=== PATIENT | male | born 1955 ===

== ENCOUNTER 2017-02-15 13:12 | Inpatient (IN) | payer SELFPAY ==
[~2017-02-15] VITALS: Ht 170.2 cm; Wt 105.6 kg
[2017-02-15] VITALS (8 sets, daily range): BP systolic 91–131; BP diastolic 51–75; PULSE 70–88; RESP 18–26; TEMP 98.5–98.6; O2SAT 93–97
[2017-02-15] MEDS ORDERED: IODIXANOL 320 MG/ML 10 ML VIAL (for Rad CT) IVCONTRAST ONE (13:13)
[2017-02-15] MEDS ORDERED: SODIUM CHLORIDE 0.9% FLUSH 10 ML FLUSH IVF PRN (13:45)
[2017-02-15 14:13] LABS: AUTOMATED NEUTROPHIL # 7.9 TH/MM3 (1.8-7.7); BASOPHIL # 0.1 TH/MM3 (0-0.2); BASOPHIL % 0.7 % (0.0-2.0); EOSINOPHIL # 0.3 TH/MM3 (0-0.4); EOSINOPHIL % 2.1 % (0.0-4.0); HEMATOCRIT 41.4 % (39.0-51.0); HEMO FLAGS DIFF FINAL; LYMPH % 24.8 % (9.0-44.0); MEAN CELL VOLUME 90.1 FL (80.0-100.0); MEAN CORPUSCULAR HEMOGLOBIN 30.2 PG (27.0-34.0); MEAN CORPUSCULAR HGB CONC 33.6 % (32.0-36.0); NEUT % 66.4 % (16.0-70.0); PLATELET COUNT 107 TH/MM3 (150-450); RED CELL DISTRIBUTION WIDTH 13.6 % (11.6-17.2); WHITE BLOOD COUNT 11.9 TH/MM3 (4.0-11.0)
[2017-02-15] MEDS ORDERED: CHLO25TA2 PO (14:15)
[2017-02-15] MEDS ORDERED: ATEN1TAB74 PO (14:15)
[2017-02-15] MEDS ORDERED: GABA100C4 PO (14:15)
[2017-02-15] MEDS ORDERED: WARF-23 PO (14:15)
[2017-02-15] MEDS ORDERED: LISI-515 PO (14:15)
[2017-02-15] MEDS ORDERED: INSU1.2I SQ (14:15)
[2017-02-15] MEDS ORDERED: METF500T PO (14:15)
[2017-02-15 14:23] LABS: APTT (PATIENT) 26.1 SEC (24.3-30.1); INTERNATIONAL NORMALIZED RATIO 1.1 RATIO; PROTHROMBIN TIME - PATIENT 11.9 SEC (9.8-11.6)
[2017-02-15 14:34] LABS: ALT (GPT) 22 U/L (12-78); ANION GAP 11 MEQ/L (5-15); AST (GOT) 15 U/L (15-37); BICARBONATE 23.2 MEQ/L (21.0-32.0); BLOOD UREA NITROGEN 40 MG/DL (7-18); CHLORIDE 96 MEQ/L (98-107); GLOMERULAR FILTRATION RATE 35 ML/MIN (>89); POTASSIUM 4.5 MEQ/L (3.5-5.1); SODIUM (NA) 130 MEQ/L (136-145)
[2017-02-15 14:37] LABS: ALKALINE PHOSPHATASE 84 U/L (45-117)
--- NOTE | 2017-02-15 14:37 | PD ---
HPI Chief Complaint: Medical Clearance Time Seen by Provider: 13:31 Travel History International Travel<30 days: No Contact w/Intl Traveler<30days: No Traveled to known affect area: No History of Present Illness HPI Patient is a 61-year-old male presenting to emergency for evaluation of possible DVT. He also states that his primary doctor wants him evaluated for pulmonary embolism. Patient states he drove back from [place] on Tuesday night. He went to his primary doctor yesterday due to increased shortness of breath and was diagnosed with pneumonia and prescribed antibiotics. Today he noticed that his left foot was turning purple and it felt numb and he was advised to come to the emergency department. Patient denies any significant pain. He does report feeling short of breath with exertion, this is causing him to use a walker which she does not normally need. Patient has a history of pulmonary embolism and is on Xarelto, he reports compliance with medication. He also reports history of hypertension and type 2 diabetes, insulin-dependent. Patient denies any nausea, vomiting, chest pain, fever, chills. PFSH Past Medical History Hx Anticoagulant Therapy: Yes Cardiovascular Problems: Yes Diabetes: Yes Patient Takes Glucophage: No Hypertension: Yes Respiratory: Yes Myocardial Infarction: Yes Past Surgical History Joint Replacement: Yes (l knee, bilat wrists, lumbar ) Social History Alcohol Use: No Tobacco Use: No Substance Use: No Allergies-Medications (Allergen,Severity, Reaction): Coded Allergies: No Known Allergies (Unverified , 02/15/17) Reported Meds & Prescriptions Reported Meds & Active Scripts Active Reported Chlorthalidone 25 Mg Tab 25 Mg PO DAILY Gabapentin 100 Mg Cap 100 Mg PO TID Metformin (Metformin HCl) 500 Mg Tab 500 Mg PO BID Warfarin 5 Mg Tab 5 Mg PO DAILY Tenormin (Atenolol) 50 Mg Tab 50 Mg PO BID Touchanelle Solostar Pen Inj (Insulin Glargine) 300 Unit/Ml Pen 20 Units SQ DAILY Lisinopril 20 Mg Tab 20 Mg PO DAILY Review of Systems Except as stated in HPI: all other systems reviewed are Neg HENT: No: Lightheadedness Cardiovascular: No: Chest Pain or Discomfort Respiratory: Positive: Shortness of Breath Gastrointestinal: No: Nausea, Abdominal Pain Musculoskeletal: Positive: Myalgias, Edema Skin: Positive Change in Pigmentation Neurologic: Positive: Sensory Disturbance, No: Weakness Physical Exam Narrative GENERAL: Overweight, well-developed, alert male. Resting comfortably in no acute distress. SKIN: Warm and dry. Left lower leg with faint erythema to the anterior calf. HEAD: Atraumatic. Normocephalic. EYES: Pupils equal and round. No scleral icterus. No injection or drainage. ENT: No nasal bleeding or discharge. Mucous membranes pink and moist. NECK: Trachea midline. No JVD. CARDIOVASCULAR: Regular rate and rhythm. RESPIRATORY: No accessory muscle use. Clear to auscultation. Breath sounds equal bilaterally. GASTROINTESTINAL: Abdomen soft, non-tender, nondistended. Hepatic and splenic margins not palpable. MUSCULOSKELETAL: Extremities without clubbing, cyanosis. No obvious deformities. Mild edema to left lower extremity. Bilateral pedal pulses are audible with Doppler. NEUROLOGICAL: Awake and alert. No obvious cranial nerve deficits. Motor grossly within normal limits. Five out of 5 muscle strength in the arms and legs. Normal speech. PSYCHIATRIC: Appropriate mood and affect; insight and judgment normal. Data Data Last Documented VS Vital Signs Date Time Temp Pulse Resp B/P (MAP) Pulse Ox O2 Delivery O2 Flow Rate FiO2 02/15/17 17:26 75 20 127/75 (92) 97 Nasal Cannula 4.00 02/15/17 13:15 98.5 Orders Orders Complete Blood Count With Diff (02/15/17 13:40) Comprehensive Metabolic Panel (02/15/17 13:40) Act Partial Throm Time (Ptt) (02/15/17 13:40) Prothrombin Time / Inr (Pt) (02/15/17 13:40) Iv Access Insert/Monitor (02/15/17 13:40) Ecg Monitoring (02/15/17 13:40) Oximetry (02/15/17 13:40) Oxygen Administration (02/15/17 13:40) Ct Pulmonary Angiogram (02/15/17 13:40) Us Leg Venous Doppler (02/15/17 13:40) Sodium Chloride 0.9% Flush (Ns Flush) (02/15/17 13:45) B-Type Natriuretic Peptide (02/15/17 13:40) Sodium Chlor 0.9% 1000 Ml Inj (Ns 1000 M (02/15/17 15:00) Iodixanol 320 Inj (Rad Ct) (Visipaque 32 (02/15/17 13:13) Electrocardiogram (02/15/17 ) Heparin Infusion RADAMES.Q1H (02/15/17 17:19) Heparin Inj (Heparin Inj) (02/15/17 17:30) Heparin-D5w 25,000 U/250 Ml (Heparin-D5w (02/15/17 18:00) Cbc No Diff, Includes Plts (02/18/17 06:00) Act Partial Throm Time (Ptt) (02/16/17 00:19) Admit Order (Ed Use Only) (02/15/17 17:52) Labs Laboratory Tests Test 02/15/17 13:55 White Blood Count 11.9 TH/MM3 Red Blood Count 4.60 MIL/MM3 Hemoglobin 13.9 GM/DL Hematocrit 41.4 % Mean Corpuscular Volume 90.1 FL Mean Corpuscular Hemoglobin 30.2 PG Mean Corpuscular Hemoglobin Concent 33.6 % Red Cell Distribution Width 13.6 % Platelet Count 107 TH/MM3 Mean Platelet Volume 10.9 FL Neutrophils (%) (Auto) 66.4 % Lymphocytes (%) (Auto) 24.8 % Monocytes (%) (Auto) 6.0 % Eosinophils (%) (Auto) 2.1 % Basophils (%) (Auto) 0.7 % Neutrophils # (Auto) 7.9 TH/MM3 Lymphocytes # (Auto) 3.0 TH/MM3 Monocytes # (Auto) 0.7 TH/MM3 Eosinophils # (Auto) 0.3 TH/MM3 Basophils # (Auto) 0.1 TH/MM3 CBC Comment DIFF FINAL Differential Comment Prothrombin Time 11.9 SEC Prothromb Time International Ratio 1.1 RATIO Activated Partial Thromboplast Time 26.1 SEC Blood Urea Nitrogen 40 MG/DL Creatinine 1.98 MG/DL Random Glucose 332 MG/DL Total Protein 7.7 GM/DL Albumin 3.6 GM/DL Calcium Level 9.3 MG/DL Alkaline Phosphatase 84 U/L Aspartate Amino Transf (AST/SGOT) 15 U/L Alanine Aminotransferase (ALT/SGPT) 22 U/L Total Bilirubin 1.0 MG/DL Sodium Level 130 MEQ/L Potassium Level 4.5 MEQ/L Chloride Level 96 MEQ/L Carbon Dioxide Level 23.2 MEQ/L Anion Gap 11 MEQ/L Estimat Glomerular Filtration Rate 35 ML/MIN B-Type Natriuretic Peptide 282 PG/ML MDM Medical Decision Making Medical Screen Exam Complete: Yes Emergency Medical Condition: Yes Interpretation(s) Last Impressions Lower Extremity Ultrasound 02/15/17 1340 Signed Impressions: Service Date/Time: Wednesday, February 15, 2017 13:49 - CONCLUSION: There is occlusive thrombus within the mid femoral vein extending distally into the popliteal vein and calf veins. Lars Anderson MD CT Angiography 02/15/17 1340 Signed Impressions: Service Date/Time: Wednesday, February 15, 2017 16:26 - CONCLUSION: 1. There is an acute saddle embolus with extensive PE extending into the more peripheral pulmonary artery branches bilaterally. 2. There are heart finding suggesting right heart strain which is closely related to right ventricular dysfunction and has been shown to be an independent predictor of adverse clinical outcome. The above findings were related to the ordering physician at the time of this dictation. Lars Anderson MD Laboratory Tests Test 02/15/17 13:55 White Blood Count 11.9 TH/MM3 Red Blood Count 4.60 MIL/MM3 Hemoglobin 13.9 GM/DL Hematocrit 41.4 % Mean Corpuscular Volume 90.1 FL Mean Corpuscular Hemoglobin 30.2 PG Mean Corpuscular Hemoglobin Concent 33.6 % Red Cell Distribution Width 13.6 % Platelet Count 107 TH/MM3 Mean Platelet Volume 10.9 FL Neutrophils (%) (Auto) 66.4 % Lymphocytes (%) (Auto) 24.8 % Monocytes (%) (Auto) 6.0 % Eosinophils (%) (Auto) 2.1 % Basophils (%) (Auto) 0.7 % Neutrophils # (Auto) 7.9 TH/MM3 Lymphocytes # (Auto) 3.0 TH/MM3 Monocytes # (Auto) 0.7 TH/MM3 Eosinophils # (Auto) 0.3 TH/MM3 Basophils # (Auto) 0.1 TH/MM3 CBC Comment DIFF FINAL Differential Comment Prothrombin Time 11.9 SEC Prothromb Time International Ratio 1.1 RATIO Activated Partial Thromboplast Time 26.1 SEC Blood Urea Nitrogen 40 MG/DL Creatinine 1.98 MG/DL Random Glucose 332 MG/DL Total Protein 7.7 GM/DL Albumin 3.6 GM/DL Calcium Level 9.3 MG/DL Alkaline Phosphatase 84 U/L Aspartate Amino Transf (AST/SGOT) 15 U/L Alanine Aminotransferase (ALT/SGPT) 22 U/L Total Bilirubin 1.0 MG/DL Sodium Level 130 MEQ/L Potassium Level 4.5 MEQ/L Chloride Level 96 MEQ/L Carbon Dioxide Level 23.2 MEQ/L Anion Gap 11 MEQ/L Estimat Glomerular Filtration Rate 35 ML/MIN B-Type Natriuretic Peptide 282 PG/ML Vital Signs Date Time Temp Pulse Resp B/P (MAP) Pulse Ox O2 Delivery O2 Flow Rate FiO2 02/15/17 17:26 75 20 127/75 (92) 97 Nasal Cannula 4.00 02/15/17 13:54 76 26 02/15/17 13:54 76 26 93/51 (65) 94 Nasal Cannula 4.00 02/15/17 13:51 (64) Nasal Cannula 4.00 02/15/17 13:51 94 Nasal Cannula 4.00 02/15/17 13:15 98.5 88 18 91/51 (64) 96 Room Air Differential Diagnosis DVT versus PE versus pneumonia versus metabolic abnormality versus other Narrative Course Patient is a 61-year-old male that presented to the emergency department on the advice of his primary doctor for evaluation for possible pulmonary embolism and DVT. Patient has had 2 long car trips in the last 2 weeks. He reportedly was compliant with Xarelto but then stated he was off of it for 2 weeks, resuming it last week. Labs and imaging ordered and pending. Patient's vital signs are stable, patient placed on satellite project site monitor and continuous pulse oximetry. IV access established. CBC is reviewed, no acute findings identified. Chemistry with BUN and creatinine of 40/1.98, sodium 130, BNP 282 Coags reviewed, no acute findings identified. Ultrasound left lower extremity shows an occlusive thrombus within the mid femoral vein extending distally into the popliteal vein and calf veins. CT pulmonary angiogram that was read by the radiologist shows an acute saddle embolus extensive PE extending into the more peripheral pulmonary artery branches bilaterally. There are heart findings suggesting right heart strain possible related right ventricular dysfunction with possible adverse outcomes. EKG ordered and shows sinus rhythm with occasional PVCs marked right axis deviation, consistent with pulmonary disease. Heparin drip and bolus ordered. [facility] paged for admission. Discussed findings with patient and family. Discussed with Dr. Tate who accepted admission. Patient will be placed in ICU for closer observation. Admit orders placed. Diagnosis Primary Impression: Pulmonary embolism Qualified Codes: I26.92 - Saddle embolus of pulmonary artery without acute cor pulmonale Additional Impressions: DVT (deep venous thrombosis) Qualified Codes: I82.432 - Acute embolism and thrombosis of left popliteal vein Hyponatremia Acute renal insufficiency Admitting Information Admitting Physician Requests: Admit Condition: Stable Carli Lozada Feb 15, 2017 14:37
--- NOTE | 2017-02-15 14:47 | RADRPT ---
EXAM DATE/TIME: 02/15/2017 13:49 [facility] COMPARISON: No previous studies available for comparison. INDICATIONS : Left leg pain. MEDICAL HISTORY : Hypertension. Cardiac disorder. Heart attack. Diabetes. SURGICAL HISTORY : Total knee replacement, left. Bilateral wrist surgery. Lumbar surgery. ENCOUNTER: Initial ACUITY: 1 day PAIN SCORE: 3/10 LOCATION: Left leg. TECHNIQUE: Venous ultrasound of the leg was performed from the inguinal ligament to the proximal calf. Real-guido e, color Doppler and spectral tracing, compression and augmentation techniques were used. FINDINGS: There is lack of normal compression within the mid femoral vein distally into the calf veins. There i s normal compression of the common femoral vein and greater saphenous vein. These vessels also demons trate lack of normal blood flow and demonstrate abnormal intraluminal echoes. CONCLUSION: There is occlusive thrombus within the mid femoral vein extending distally into the popliteal vein an d calf veins. Lars Anderson MD on February 15, 2017 at 14:44 Board Certified Radiologist. This report was verified electronically.
[2017-02-15] MEDS ORDERED: SODIUM CHLOR 0.9% 1000 ML INJ 1,000 ML IV ONE (15:00)
--- NOTE | 2017-02-15 15:31 | PD ---
Physical Exam Date Seen by Provider: Feb 15, 2017 Narrative Possible DVT and/or PE. The patient was sent by his primary care provider for evaluation of the above problems. He has had shortness of breath. He noticed swelling and discoloration of his foot today. He contacted his primary care provider who instructed him to come to the emergency department for evaluation. Data Data Last Documented VS Vital Signs Date Time Temp Pulse Resp B/P (MAP) Pulse Ox O2 Delivery O2 Flow Rate FiO2 02/15/17 13:54 76 26 02/15/17 13:54 93/51 (65) 94 Nasal Cannula 4.00 02/15/17 13:15 98.5 Orders Orders Complete Blood Count With Diff (02/15/17 13:40) Comprehensive Metabolic Panel (02/15/17 13:40) Act Partial Throm Time (Ptt) (02/15/17 13:40) Prothrombin Time / Inr (Pt) (02/15/17 13:40) Iv Access Insert/Monitor (02/15/17 13:40) Ecg Monitoring (02/15/17 13:40) Oximetry (02/15/17 13:40) Oxygen Administration (02/15/17 13:40) Ct Pulmonary Angiogram (02/15/17 13:40) Us Leg Venous Doppler (02/15/17 13:40) Sodium Chloride 0.9% Flush (Ns Flush) (02/15/17 13:45) B-Type Natriuretic Peptide (02/15/17 13:40) Sodium Chlor 0.9% 1000 Ml Inj (Ns 1000 M (02/15/17 15:00) Labs Laboratory Tests Test 02/15/17 13:55 White Blood Count 11.9 TH/MM3 Red Blood Count 4.60 MIL/MM3 Hemoglobin 13.9 GM/DL Hematocrit 41.4 % Mean Corpuscular Volume 90.1 FL Mean Corpuscular Hemoglobin 30.2 PG Mean Corpuscular Hemoglobin Concent 33.6 % Red Cell Distribution Width 13.6 % Platelet Count 107 TH/MM3 Mean Platelet Volume 10.9 FL Neutrophils (%) (Auto) 66.4 % Lymphocytes (%) (Auto) 24.8 % Monocytes (%) (Auto) 6.0 % Eosinophils (%) (Auto) 2.1 % Basophils (%) (Auto) 0.7 % Neutrophils # (Auto) 7.9 TH/MM3 Lymphocytes # (Auto) 3.0 TH/MM3 Monocytes # (Auto) 0.7 TH/MM3 Eosinophils # (Auto) 0.3 TH/MM3 Basophils # (Auto) 0.1 TH/MM3 CBC Comment DIFF FINAL Differential Comment Prothrombin Time 11.9 SEC Prothromb Time International Ratio 1.1 RATIO Activated Partial Thromboplast Time 26.1 SEC Blood Urea Nitrogen 40 MG/DL Creatinine 1.98 MG/DL Random Glucose 332 MG/DL Total Protein 7.7 GM/DL Albumin 3.6 GM/DL Calcium Level 9.3 MG/DL Alkaline Phosphatase 84 U/L Aspartate Amino Transf (AST/SGOT) 15 U/L Alanine Aminotransferase (ALT/SGPT) 22 U/L Total Bilirubin 1.0 MG/DL Sodium Level 130 MEQ/L Potassium Level 4.5 MEQ/L Chloride Level 96 MEQ/L Carbon Dioxide Level 23.2 MEQ/L Anion Gap 11 MEQ/L Estimat Glomerular Filtration Rate 35 ML/MIN MDM Supervised Visit with CHRISTINA: Yes Narrative Course I, Dr. Casanova, have reviewed the advance practice practitioner's documentation and am in agreement, met with the patient face to face, made the diagnosis, and the medical decision making was done by me. *My assessment and Findings: Patient is lying on the stretcher in no acute respiratory distress. Please see Carli Myers NP's note for results of laboratory and radiographic evaluation, ED course, final diagnosis and disposition Aniyah Casanova MD Feb 15, 2017 15:31
--- NOTE | 2017-02-15 17:22 | RADRPT ---
EXAM DATE/TIME: 02/15/2017 16:26 [facility] COMPARISON: US LEG LEFT VENOUS DOPPLER, February 15, 2017, 13:49. INDICATIONS : Shortness of breath left lower leg cool to touch IV CONTRAST: 50 cc Visipaque (iodixanol) IV RADIATION DOSE: 20.99 CTDIvol (mGy) MEDICAL HISTORY : Cardiovascular disease. Diabetes SURGICAL HISTORY : None. ENCOUNTER: Initial ACUITY: 1 day PAIN SCALE: 1/10 LOCATION: chest TECHNIQUE: Volumetric scanning of the chest was performed using a pulmonary embolism protocol MIP images were re constructed. Using automated exposure control and adjustment of the mA and/or kV according to patien t size, radiation dose was kept as low as reasonably achievable to obtain optimal diagnostic quality images. DICOM format image data is available electronically for review and comparison. Follow-up recommendations for detected pulmonary nodules are based at a minimum on nodule size and pa tient risk factors according to Fleischner Society Guidelines. FINDINGS: PULMONARY ARTERIES: There is extensive filling defect within the pulmonary arteries with saddle embolus draped over the p ulmonary bifurcation. Thrombus also extends into the more peripheral branches primarily in the lower lobes bilaterally. LUNGS: There is no consolidation or pneumothorax . No concerning pulmonary nodule is visualized. Linear [place] in the lung bases likely represents atelectasis. PLEURAE: There is no pleural thickening or pleural effusion. MEDIASTINUM: There is right heart enlargement with flattening of the interventricular septum and the right atrium appears mildly dilated. No lymphadenopathy is present. MUSCULOSKELETAL: No acute abnormality is identified. MISCELLANEOUS: The visualized upper abdominal organs demonstrate no acute abnormality. There is a partially visualiz ed 5.1 cm left upper pole renal cyst. CONCLUSION: 1. There is an acute saddle embolus with extensive PE extending into the more peripheral pulmonary ar cooper branches bilaterally. 2. There are heart finding suggesting right heart strain which is closely related to right ventricula r dysfunction and has been shown to be an independent predictor of adverse clinical outcome. The above findings were related to the ordering physician at the time of this dictation. Lars Anderson MD on February 15, 2017 at 17:13 Board Certified Radiologist. This report was verified electronically.
[2017-02-15] MEDS ORDERED: HEPARIN SODIUM - IV 10,000 UNITS/10 ML VIAL IV ONE (17:30)
[2017-02-15] MEDS: HEPARIN-D5W 25,000 U/250 ML 250 ML IV PRN (17:55)
[2017-02-15] MEDS ORDERED: DEXTROSE 50% IN WATER 50 ML VIAL(D50) IV PUSH PRN (20:30)
[2017-02-15] MEDS ORDERED: GLUCAGON 1 MG/ML VIAL OTHER PRN (20:30)
[2017-02-15] MEDS ORDERED: CHLORHEXIDINE GLUCONATE 2 % 1 PACK (2 CLOTHS)(extra cloths) TOPICAL PRN (21:00)
[2017-02-15] MEDS: INSULIN ASPART SUPPLEMENTAL SCALE SQ SCH (22:21)
[2017-02-15] MEDS: CHLORHEXIDINE GLUCONATE 2 % 1 PACK (2 CLOTHS)(taper/protocol) TOPICAL SCH (22:21)
--- NOTE | 2017-02-15 23:03 | HHI.HP ---
[facility] Lars Barahona, DO Admission Diagnosis PULMONARY EMBOLUS, DVT Diagnoses: Travel History International Travel<30 Days: No Contact w/Intl Traveler <30 Da: No Traveled to Known Affected Are: No History of Present Illness hx from patient, ER MD communication and review of med short of breath for 1- 2 weeks went to pcp yesterday and was told he has PE - and told to take xarelto and if gets worse to come to hospital today am, left LE was purple, and had cramps thus came to er traveled here to [place] and back twice in past 6 weeks off xarelto for 2 weeks in between trips no chest pain no syncope hx of PE 2012 was last one - total 2 x total every time it is from prolonged travels was on coumadin at one point, stopped over a year ago, switched to xarelto then so that he wont need to do frequent blood tests no hx of afib no valvular problem as far as he knows- may have had echo in Review of Systems Except as stated in HPI: all other systems reviewed are Neg Past Family Social History Past Medical History htn dm cad s/p 2 [place] - no stents suspects copd per - never used to smoke, but was exposed to second hand smoke; but not on any breathing treatment or oxygen at home Past Surgical History coronary angiograms carpal tunnel bilateral lower lumbar left knee sx - arthroscopic Allergies: Coded Allergies: No Known Allergies (Unverified , 02/15/17) Family History family hx of asthma mom- TB, asthma, on oxygen, still alive at 80 yo dad- [place] Social History never smokes no etoh or drug abuse still driving, doesnt use walker usually Physical Exam Vital Signs Vital Signs Date Time Temp Pulse Resp B/P (MAP) Pulse Ox O2 Delivery O2 Flow Rate FiO2 02/15/17 22:16 02/15/17 20:21 98.6 80 20 108/65 (79) 93 02/15/17 19:07 80 18 123/69 (87) 97 Nasal Cannula 4.00 02/15/17 18:26 70 25 131/73 (92) 97 Nasal Cannula 4.00 02/15/17 17:26 75 20 127/75 (92) 97 Nasal Cannula 4.00 02/15/17 13:54 76 26 02/15/17 13:54 76 26 93/51 (65) 94 Nasal Cannula 4.00 02/15/17 13:51 (64) Nasal Cannula 4.00 02/15/17 13:51 94 Nasal Cannula 4.00 02/15/17 13:15 98.5 88 18 91/51 (64) 96 Room Air Physical Exam GENERAL: This is a well-nourished, well-developed patient, in no apparent distress. SKIN: No rashes, ecchymoses or lesions. Cool and dry. HEAD: Atraumatic. Normocephalic. No temporal or scalp tenderness. EYES: No scleral icterus. No injection or drainage. ENT: Nose without bleeding, purulent drainage or septal hematoma. Airway patent. NECK: Trachea midline. No JVD CARDIOVASCULAR: Regular rate and rhythm without murmurs, gallops, or rubs. RESPIRATORY: Clear to auscultation. Breath sounds equal bilaterally. No wheezes , rales, or rhonchi. GASTROINTESTINAL: Abdomen soft, non-tender, nondistended. No guarding. MUSCULOSKELETAL: Extremities without clubbing, cyanosis.. No calf tenderness. bilateral LE edema and calf tenderness NEUROLOGICAL: Awake and alert. Motor and sensory grossly within normal limits. Normal speech. Laboratory Laboratory Tests Test 02/15/17 13:55 02/15/17 20:20 White Blood Count 11.9 Red Blood Count 4.60 Hemoglobin 13.9 Hematocrit 41.4 Mean Corpuscular Volume 90.1 Mean Corpuscular Hemoglobin 30.2 Mean Corpuscular Hemoglobin Concent 33.6 Red Cell Distribution Width 13.6 Platelet Count 107 Mean Platelet Volume 10.9 Neutrophils (%) (Auto) 66.4 Lymphocytes (%) (Auto) 24.8 Monocytes (%) (Auto) 6.0 Eosinophils (%) (Auto) 2.1 Basophils (%) (Auto) 0.7 Neutrophils # (Auto) 7.9 Lymphocytes # (Auto) 3.0 Monocytes # (Auto) 0.7 Eosinophils # (Auto) 0.3 Basophils # (Auto) 0.1 CBC Comment DIFF FINAL Differential Comment Prothrombin Time 11.9 Prothromb Time International Ratio 1.1 Activated Partial Thromboplast Time 26.1 Blood Urea Nitrogen 40 Creatinine 1.98 Random Glucose 332 Total Protein 7.7 Albumin 3.6 Calcium Level 9.3 Alkaline Phosphatase 84 Aspartate Amino Transf (AST/SGOT) 15 Alanine Aminotransferase (ALT/SGPT) 22 Total Bilirubin 1.0 Sodium Level 130 Potassium Level 4.5 Chloride Level 96 Carbon Dioxide Level 23.2 Anion Gap 11 Estimat Glomerular Filtration Rate 35 B-Type Natriuretic Peptide 282 Result Diagram: 02/15/17 1355 02/15/[address] pulm angiogram personally reviewed- delmis embolus Mikorinrosibel VTE Risk Assessment Caprini VTE Risk Assessment: Mod/High Risk (score >= 2) Caprini Risk Assessment Model Point Value = 1 Point Value = 2 Point Value = 3 Point Value = 5 Age 41-60 Minor surgery BMI > 25 kg/m2 Swollen legs Varicose veins or History of unexplained or recurrent spontaneous Oral contraceptives or hormone replacement Sepsis (< 1 month) Serious lung disease, including pneumonia (< 1 month) Abnormal pulmonary function Acute myocardial infarction Congestive heart failure (< 1 month) History of inflammatory bowel disease Medical patient at bed rest Age 61-74 Arthroscopic surgery Major open surgery (> 45 min) Laparoscopic surgery (> 45 min) Malignancy Confined to bed (> 72 hours) Immobilizing plaster cast Central venous access Age >= 75 History of VTE Family history of VTE Factor V Leiden Prothrombin [id number] Lupus anticoagulant Anticardiolipin antibodies Elevated serum homocysteine Heparin-induced thrombocytopenia Other congenital or acquired thrombophilia Stroke (< 1 month) Elective arthroplasty Hip, pelvis, or leg fracture Acute spinal cord injury (< 1 month) Prophylaxis Regimen Total Risk Factor Score Risk Level Prophylaxis Regimen 0-1 Low Early ambulation 2 Moderate Order ONE of the following: *Sequential Compression Device (SCD) *Heparin 5000 units SQ BID 3-4 Higher Order ONE of the following medications: *Heparin 5000 units SQ TID *Enoxaparin/Lovenox 40 mg SQ daily (WT < 150 kg, CrCl > 30 mL/min) *Enoxaparin/Lovenox 30 mg SQ daily (WT < 150 kg, CrCl > 10-29 mL/min) *Enoxaparin/Lovenox 30 mg SQ BID (WT < 150 kg, CrCl > 30 mL/min) AND/OR *Sequential Compression Device (SCD) 5 or more Highest Order ONE of the following medications: *Heparin 5000 units SQ TID (Preferred with Epidurals) *Enoxaparin/Lovenox 40 mg SQ daily (WT < 150 kg, CrCl > 30 mL/min) *Enoxaparin/Lovenox 30 mg SQ daily (WT < 150 kg, CrCl > 10-29 mL/min) *Enoxaparin/Lovenox 30 mg SQ BID (WT < 150 kg, CrCl > 30 mL/min) AND *Sequential Compression Device (SCD) Assessment and Plan Assessment and Plan Impression: saddle pulm embolus acute LLE DVT medication non compliance hx of multiple PEs and DVTs borderline low BP Plan: hold bp meds heparin drip watch in icu pt is not on coumadin now- taking xarelto gabapentin taken as prn at home for neuropathy- hold for now due to drowsiness on it and low bp hold metformin monitor fingersticks and sliding scale consult hematology for possible anticoagulation + need of filter US of LE for dvt/ clot burden reviewed personally Discussed Condition With patient, ER MD, nursing staff Physician Certification 2 Midnight Certification Type: Admission for Inpatient Services Order for Inpatient Services The services are ordered in accordance with Medicare regulations or non- Medicare payer requirements, as applicable. In the case of services not specified as inpatient-only, they are appropriately provided as inpatient services in accordance with the 2-midnight benchmark. Estimated LOS (days): 2 days is the estimated time the patient will need to remain in the hospital, assuming treatment plan goals are met and no additional complications. Post-Hospital Plan: Home Giovani Mccracken MD Feb 15, 2017 23:03
[2017-02-16] VITALS (21 sets, daily range): BP systolic 113–133; BP diastolic 63–79; PULSE 65–88; RESP 13–22; TEMP 98.3–98.6; O2SAT 95–99
[2017-02-16 01:25] LABS: APTT (PATIENT) 68.3 SEC (24.3-30.1)
[2017-02-16] MEDS: HEPARIN-D5W 25,000 U/250 ML 250 ML IV PRN (05:39)
[2017-02-16] MEDS: INSULIN ASPART SUPPLEMENTAL SCALE SQ SCH ×4 (08:00→21:00)
--- NOTE | 2017-02-16 09:21 | MB ---
cc: LEXI MICHAEL M.D. DATE OF CONSULTATION: February 16, [address] Mccracken. REASON FOR CONSULTATION Hematology was consulted to render opinion regarding the patient with recurrent DVT and pulmonary embolism. HISTORY OF PRESENT ILLNESS The patient is a 61-year-old male who presented to the hospital with increased shortness of breath since Tuesday. He had prior history of pulmonary embolism in 2011 and has been on Xarelto. However, he went to [place] 3 weeks ago and he ran out of Xarelto. He was off of Xarelto for about 2 weeks. He restarted taking Xarelto again around last Tuesday. By Tuesday he was experiencing increased shortness of breath. The following day his left lower extremity started swelling up, it turned purple and tender. He went to see Dr. Barahona and was told to come to the emergency room. CT angiogram showed saddle embolism with extensive pulmonary embolism and sign of possible right heart strain. Ultrasound also showed occlusive thrombus in the left lower extremity from femoral vein down to the calf. He was admitted to the Intensive Care Unit. He was started on heparin. He stated that he has been driving extensively over the last few months. He drove to [place] back and forth three times. He usually drives straight, only stops for gas and his trip is about 18 hours. When I saw him this morning he is hemodynamically stable. His shortness of breath has improved. His lower extremity swelling and tenderness also has improved. PAST MEDICAL HISTORY 1. Pulmonary embolism in 2011 due to prolonged car trip. He was on Coumadin for many years. He was switched to Xarelto a year ago. 2. Hypertension. 3. Diabetes mellitus. 4. Coronary disease with two myocardial infarctions, last one about 6 years ago. 5. Chronic obstructive pulmonary disease. PAST SURGICAL HISTORY 1. Bilateral carpal tunnel release. 2. Lumbar surgery. 3. Left knee arthroscopic surgery. FAMILY HISTORY One brother and two sisters are all healthy. Father of myocardial infarction, mother is alive. Son is healthy. No family history of thromboembolic event. SOCIAL HISTORY Denies tobacco, alcohol use. He is now retired. ALLERGIES NO KNOWN DRUG ALLERGIES. CURRENT MEDICATIONS Heparin. REVIEW OF SYSTEMS CONSTITUTIONAL: Negative. EYES: Negative. ENT: Negative. CARDIOVASCULAR: As above. RESPIRATORY: As above. GI: Denies nausea, vomiting, diarrhea, abdominal pain. : Denies dysuria, hematuria. MUSCULOSKELETAL: Negative. HEMATOLOGY: As above. ENDOCRINE: Negative. DERMATOLOGY: Negative. PSYCHIATRIC: Negative. NEUROLOGIC: Negative. PHYSICAL EXAMINATION VITAL SIGNS: Temperature 98.6, blood pressure 116/63, O2 saturation 95% on 4 liters nasal cannula. GENERAL: He is alert and oriented x3, in no acute distress, a little overweight. HEENT: Atraumatic, normocephalic. Pupils equal, round and reactive to light. Extraocular muscles intact. No scleral icterus. Oropharynx dry mucosa. No lesion or thrush. No mucositis. NECK: No thyromegaly. No palpable masses. LYMPHATICS: No palpable cervical, clavicular, axillary, inguinal lymph nodes. CARDIOVASCULAR: Regular, S1-S2. No murmur. No tachycardia. LUNGS: Slight crackles in the lung bases. ABDOMEN: Soft, nontender. Could not palpate liver or spleen. EXTREMITIES: No cyanosis. The left lower extremity has mild edema and no significant calf tenderness. No ischemia noted. The left toe however, is slightly cool. SKIN: He has a tattoo. NEUROLOGIC: Nonfocal. LABORATORY DATA Reviewed. ASSESSMENT 1. Recurrent pulmonary embolism. He had first episode of pulmonary embolism in 2011 after a long car trip. He was on Coumadin for many years and stated that he tolerated it well. He however, was switched to Xarelto a year ago. He has been driving extensively the last 2-3 months. He drove to [place] back and forth three times. Each trip is about 18 hours. He ran out of Xarelto about 3 weeks ago and was off of Xarelto for 2 weeks. He just started back on Xarelto last Tuesday. By Tuesday he started having pulmonary symptoms and the following day his left lower extremity has increased edema and tenderness. CT angiogram showed saddle embolus with extensive pulmonary embolism extending into the peripheral pulmonary artery branches bilaterally. There was also finding suggestive of possible right heart strain. Ultrasound of the lower extremity showed occlusive thrombus extending from mid femoral vein down to the calf in the left lower extremity. I think the patient has underlying hypercoagulable state and we should do a hypercoagulable workup, but this is not the right time to do it. This can be done as outpatient. I think his blood clots were triggered by the long car trip as well as the fact that he stopped Xarelto for about 2 weeks. I do not think he has failed Xarelto. He was started on heparin and his symptom has improved. I suggest getting an echocardiogram for further evaluation. If he still has significant right heart strain may have to consider thrombolytic therapy. If not he can stay on heparin for now. We could bridge him back to Xarelto or coumadin in another day or two when he is more stable. I also talked to him about going back to Coumadin. He stated that he tolerated Coumadin well and his level used to be quite stable. In fact he seems to prefer to go back to Coumadin because it is cheaper, he has to pay more than $400 dollars a month for the Xarelto. 2. Hypertension. 3. Diabetes mellitus. 4. Coronary artery disease with history of myocardial infarction. 5. Chronic obstructive pulmonary disease. RECOMMENDATIONS 1. Get echocardiogram and if he has significant right heart strain, would recommend thrombolytic therapy. 2. Continue heparin for now and could bridge him back to Coumadin or one of the new oral anticoagulant once he is more stable. 3. Continue supportive care. Thank you Dr. Mccracken for asking me to see this patient. MD MAGY Crow/INDIO /8:16 AM /8:40 AM DAYANNA
[2017-02-16 09:40] LABS: APTT (PATIENT) 63.7 SEC (24.3-30.1)
--- NOTE | 2017-02-16 09:48 | EKG ---
Date Performed: 02/15/2017 Time Performed: 17:30:32 PTAGE: 61 years EKG: Sinus rhythm WITH OCCASIONAL SUPRAVENTRICULAR PREMATURE COMPLEXES MARKED RIGHT AXIS DEVIATION LOW QRS VOLTAGE IN EXTREMITY LEADS PATTERN CONSISTENT WITH PULMONARY DISEASE INFERIOR MYOCARDIAL INFARCTION MODERATE T-W AVE ABNORMALITY, CONSIDER ANTERIOR ISCHEMIA ABNORMAL ECG NO PREVIOUS TRACING DOCTOR: Chong Hanna Interpretating Date/Time 02/16/2017 09:48:05
--- NOTE | 2017-02-16 09:57 | HHI.PR ---
Subjective Remarks Follow-up recurrent pulmonary embolism 02/16/17-patient seen and examined, denies any chest pain or shortness of breath. No acute event overnight. Currently on heparin drip. Vitals stable. Objective Vitals Vital Signs Date Time Temp Pulse Resp B/P (MAP) Pulse Ox O2 Delivery O2 Flow Rate FiO2 02/16/17 06:00 69 02/16/17 04:00 73 02/16/17 04:00 98.6 73 19 116/63 (80) 95 02/16/17 02:00 68 02/16/17 00:00 77 02/15/17 23:00 98.6 75 21 102/59 (73) 02/15/17 23:00 75 02/15/17 22:16 02/15/17 22:00 71 02/15/17 20:21 98.6 80 20 108/65 (79) 93 02/15/17 19:07 80 18 123/69 (87) 97 Nasal Cannula 4.00 02/15/17 18:26 70 25 131/73 (92) 97 Nasal Cannula 4.00 02/15/17 17:26 75 20 127/75 (92) 97 Nasal Cannula 4.00 02/15/17 13:54 76 26 02/15/17 13:54 76 26 93/51 (65) 94 Nasal Cannula 4.00 02/15/17 13:51 (64) Nasal Cannula 4.00 02/15/17 13:51 94 Nasal Cannula 4.00 02/15/17 13:15 98.5 88 18 91/51 (64) 96 Room Air I/O 02/15/17 02/15/17 02/15/17 02/16/17 02/16/17 02/16/17 07:00 15:00 23:00 07:00 15:00 23:00 Intake Total 1000 ml 0 ml Output Total 800 ml Balance 1000 ml -800 ml Intake Oral 0 ml IV Total 1000 ml Output Urine Total 800 ml Stool Total 0 ml Result Diagram: 02/15/17 1355 02/15/17 1355 Imaging Last Impressions Lower Extremity Ultrasound 02/15/17 1340 Signed Impressions: Service Date/Time: Wednesday, February 15, 2017 13:49 - CONCLUSION: There is occlusive thrombus within the mid femoral vein extending distally into the popliteal vein and calf veins. Lars Anderson MD CT Angiography 02/15/17 1340 Signed Impressions: Service Date/Time: Wednesday, February 15, 2017 16:26 - CONCLUSION: 1. There is an acute saddle embolus with extensive PE extending into the more peripheral pulmonary artery branches bilaterally. 2. There are heart finding suggesting right heart strain which is closely related to right ventricular dysfunction and has been shown to be an independent predictor of adverse clinical outcome. The above findings were related to the ordering physician at the time of this dictation. Lars Anderson MD Objective Remarks GENERAL: NAD SKIN: Warm and dry. HEAD: Normocephalic. EYES: No scleral icterus. No injection or drainage. NECK: Supple, trachea midline. No JVD or lymphadenopathy. CARDIOVASCULAR: Regular rate and rhythm without murmurs, gallops, or rubs. RESPIRATORY: Breath sounds equal bilaterally. No accessory muscle use. GASTROINTESTINAL: Abdomen soft, non-tender, nondistended. MUSCULOSKELETAL: No cyanosis, or edema. BACK: Nontender without obvious deformity. No CVA tenderness. A/P Problem List: (1) COPD (chronic obstructive pulmonary disease) ICD Code: J44.9 - Chronic obstructive pulmonary disease, unspecified (2) Diabetes mellitus, type II ICD Code: E11.9 - Type 2 diabetes mellitus without complications (3) Noncompliance ICD Code: Z91.19 - Patient's noncompliance with other medical treatment and regimen (4) Left leg DVT ICD Code: I82.402 - Acute embolism and thrombosis of unspecified deep veins of left lower extremity (5) Recurrent pulmonary embolism ICD Code: I26.99 - Other pulmonary embolism without acute cor pulmonale Assessment and Plan 61-year-old man with Recurrent pulmonary embolism Left lower extremity DVT CT pulmonary angiogram positive for PE Left lower extremity Doppler positive for DVT Currently on heparin drip, likely with switch to by mouth Coumadin versus Xarelto in 1 day Check 2-D echo Appreciate input from hematology Will need outpatient hypercoagulable workup Diabetes type 2 Continue to hold metformin Change sliding scale 2 medium Start NovoLog 70/30 5 units twice a day Check hemoglobin A1c, lipid profile CKD Continue to monitor renal function, and avoid all nephrotoxic drugs COPD No exacerbation DuoNeb when necessary Leukocytosis Stress reactive Continue to monitor CBC Mild hyponatremia Monitor electrolyte DVT prophylaxis: Heparin Transfer to Rj Mccoy MD Feb 16, 2017 09:57
[2017-02-16] MEDS ORDERED: GLUCAGON 1 MG/ML VIAL OTHER PRN (10:00)
[2017-02-16] MEDS ORDERED: DEXTROSE 50% IN WATER 50 ML VIAL(D50) IV PUSH PRN (10:00)
[2017-02-16] MEDS ORDERED: DOCUSATE SODIUM 50 MG/SENNA 8.6 MG TAB PO PRN (10:00)
[2017-02-16] MEDS ORDERED: TEMAZEPAM 15 MG CAP PO PRN (10:00)
[2017-02-16] MEDS ORDERED: ONDANSETRON HCL 4 MG/2 ML VIAL IV PUSH PRN (10:00)
[2017-02-16] MEDS ORDERED: RESP: ALBUTEROL 2.5 MG/IPRATROPIUM 0.5 MG NEB (PRN) NEB (10:00)
--- NOTE | 2017-02-16 11:30 | ECHRPT ---
Indication: EF assessment of CHF, PULM EMBOLI CONCLUSIONS Normal left ventricular size. Wall thickness is normal. The left ventricular systolic function is hyperdynamic with an estimated ejection fraction in the ra nge of 65- 70%. The right ventricle is moderately dilated. The right ventricular systolic function is severely decreased. Right atrial enlargement. [id number] mitral valve regurgitation. There is mild to moderate tricuspid valve regurgitation. The estimated pulmonary arterial pressure is 61 mmHg. BP: 116 / 63 HR: Rhythm: Sinus MEASUREMENTS (Male / Female) Normal Values Technical Quality:Fair 2D ECHO LV Diastolic Diameter PLAX 3.7 cm 4.2 - 5.9 / 3.9 - 5.3 cm LV Systolic Diameter PLAX 2.5 cm IVS Diastolic Thickness 0.8 cm 0.6 - 1.0 / 0.6 - 0.9 cm LVPW Diastolic Thickness 0.8 cm 0.6 - 1.0 / 0.6 - 0.9 cm LV Relative Wall Thickness 0.5 RV Internal Dim ED PLAX 4.1 cm LVOT Diameter 2.3 cm Aortic Root Diameter 3.0 cm LA Systolic Diameter LX 3.3 cm 3.0 - 4.0 / 2.7 - 3.8 cm M-MODE AV Cusp Separation MM 2.4 cm DOPPLER AV Peak Velocity 96.1 cm/s AV Peak Gradient 3.7 mmHg AV Mean Gradient 2.0 mmHg AV Velocity Time Integral 19.5 cm LVOT Peak Velocity 55.6 cm/s LVOT Peak Gradient 1.2 mmHg LVOT Velocity Time Integral 8.6 cm AV Area Cont Eq vti 1.8 cm AV Area Cont Eq pk 2.4 cm Mitral E Point Velocity 36.0 cm/s Mitral A Point Velocity 44.9 cm/s Mitral E to A Ratio 0.8 LV E' Lateral Velocity 6.9 cm/s Mitral E to LV E' Lateral Ratio 5.2 LV E' Septal Velocity 4.2 cm/s Mitral E to LV E' Septal Ratio 8.6 TR Peak Velocity 357.0 cm/s TR Peak Gradient 51.0 mmHg Right Atrial Pressure 10.0 mmHg Pulmonary Artery Systolic Pressu 61.0 mmHg Right Ventricular Systolic Press 61.0 mmHg PV Peak Velocity 39.9 cm/s PV Peak Gradient 0.6 mmHg FINDINGS LEFT VENTRICLE Normal left ventricular size. Wall thickness is normal. The left ventricular systolic function is hyperdynamic with an estimated ejection fraction in the ra nge of 65- 70%. RIGHT VENTRICLE The right ventricle is moderately dilated. The right ventricular systolic function is severely decreased. RIGHT ATRIUM RA enlargement MITRAL VALVE [id number] mitral valve regurgitation. TRICUSPID VALVE There is mild to moderate tricuspid valve regurgitation. The estimated pulmonary arterial pressure is 61 mmHg. Nerissa Avalos MD, FACC (Electronically Signed) Final Date:16 February 2017 11:29
[2017-02-16] MEDS: INSULIN HUMAN NPH/R 70/30 1,000 UNITS/10 ML VIAL SQ SCH (17:00)
--- NOTE | 2017-02-16 18:09 | PD.CONS ---
History of Present Illness Consult Requested By The patient is a very pleasant 61-year-old gentleman who came in the hospital because of shortness breath and swelling of the lower extremity. He was found to have saddle embolus. He is doing much better right now. History of having chest pain. He is not having any hemoptysis. Primary Care Physician Lars Barahona, DO Diagnoses: Review of Systems Respiratory: COMPLAINS OF: Shortness of breath Past Family Social History Allergies: Coded Allergies: No Known Allergies (Unverified , 02/15/17) Physical Exam Vital Signs Vital Signs Date Time Temp Pulse Resp B/P (MAP) Pulse Ox O2 Delivery O2 Flow Rate FiO2 02/16/17 16:00 98.3 79 22 113/69 (84) 97 02/16/17 15:00 85 02/16/17 14:00 79 02/16/17 14:00 79 02/16/17 13:00 80 02/16/17 13:00 80 02/16/17 12:00 71 02/16/17 12:00 98.3 71 19 125/79 (94) 98 02/16/17 12:00 71 02/16/17 11:01 80 02/16/17 11:00 78 02/16/17 11:00 78 02/16/17 10:00 75 02/16/17 10:00 75 02/16/17 09:00 70 02/16/17 09:00 70 02/16/17 08:00 98.4 66 13 133/69 (90) 99 02/16/17 08:00 66 02/16/17 08:00 66 02/16/17 07:00 65 02/16/17 07:00 65 02/16/17 06:00 69 02/16/17 04:00 73 02/16/17 04:00 98.6 73 19 116/63 (80) 95 02/16/17 02:00 68 02/16/17 00:00 77 02/15/17 23:00 98.6 75 21 102/59 (73) 02/15/17 23:00 75 02/15/17 22:16 02/15/17 22:00 71 02/15/17 20:21 98.6 80 20 108/65 (79) 93 02/15/17 19:07 80 18 123/69 (87) 97 Nasal Cannula 4.00 11/7/17 18:26 70 25 131/73 (92) 97 Nasal Cannula 4.00 Physical Exam GENERAL: This is a well-nourished, well-developed patient, in no apparent distress. SKIN: No rashes, ecchymoses or lesions. Cool and dry. HEAD: Atraumatic. Normocephalic. No temporal or scalp tenderness. EYES: Pupils equal round and reactive. Extraocular motions intact. No scleral icterus. No injection or drainage. ENT: Nose without bleeding, purulent drainage or septal hematoma. Throat without erythema, tonsillar hypertrophy or exudate. Uvula midline. Airway patent. NECK: Trachea midline. No JVD or lymphadenopathy. Supple, nontender, no meningeal signs. CARDIOVASCULAR: Regular rate and rhythm without murmurs, gallops, or rubs. RESPIRATORY: Clear to auscultation. Breath sounds equal bilaterally. No wheezes , rales, or rhonchi. GASTROINTESTINAL: Abdomen soft, non-tender, nondistended. No hepato-splenomegaly , or palpable masses. No guarding. MUSCULOSKELETAL: Extremities without clubbing, cyanosis, or edema. No joint tenderness, effusion, or edema noted. No calf tenderness. Negative Homans sign bilaterally. NEUROLOGICAL: Awake and alert. Cranial nerves II through XII intact. Motor and sensory grossly within normal limits. Five out of 5 muscle strength in all muscle groups. Normal speech. Laboratory Laboratory Tests Test 02/15/17 20:20 02/16/17 00:35 02/16/17 09:20 Nasal Screen MRSA (PCR) MRSA NOT DETECTED Activated Partial Thromboplast Time 68.3 63.7 Result Diagram: 02/15/17 1355 02/15/17 1355 Assessment and Plan Problem List: (1) Pulmonary embolism ICD Codes: I26.99 - Other pulmonary embolism without acute cor pulmonale Status: Acute (2) DVT (deep venous thrombosis) ICD Codes: I82.409 - Acute embolism and thrombosis of unspecified deep veins of unspecified lower extremity Status: Acute Problem Qualifiers (1) Pulmonary embolism: Qualified Codes: I26.92 - Saddle embolus of pulmonary artery without acute cor pulmonale (2) DVT (deep venous thrombosis): Qualified Codes: I82.432 - Acute embolism and thrombosis of left popliteal vein Chencho Marte MD Feb 16, 2017 18:09
[2017-02-16] MEDS: Intra-Venous ALTEPLASE 10 MG/500 ML NS IV PRN ×4 (18:45→21:34)
[2017-02-16] MEDS ORDERED: Intra-Venous SODIUM CHLORIDE 0.9% IV LINE 1000 ML IV SCH (21:00)
[2017-02-16] MEDS ORDERED: Intra-Venous HEPARIN 1,000 UNITS/500 ML NS (PRN) IV ×2 (21:15)
[2017-02-16] MEDS ORDERED: HEPARIN-D5W 25,000 U/250 ML 250 ML IV SCH (21:15)
[2017-02-17] VITALS (16 sets, daily range): BP systolic 111–171; BP diastolic 68–83; PULSE 70–88; RESP 15–24; TEMP 98.2–98.4; O2SAT 95–100
[2017-02-17 00:19] LABS: AUTOMATED NEUTROPHIL # 4.7 TH/MM3 (1.8-7.7); BASOPHIL # 0.1 TH/MM3 (0-0.2); BASOPHIL % 0.7 % (0.0-2.0); EOSINOPHIL # 0.2 TH/MM3 (0-0.4); EOSINOPHIL % 2.8 % (0.0-4.0); HEMATOCRIT 38.3 % (39.0-51.0); LYMPH % 37.2 % (9.0-44.0); LYMPHOCYTE # 3.3 TH/MM3 (1.0-4.8); MEAN CELL VOLUME 88.9 FL (80.0-100.0); MEAN CORPUSCULAR HEMOGLOBIN 30.3 PG (27.0-34.0); MEAN CORPUSCULAR HGB CONC 34.1 % (32.0-36.0); MONO % 6.4 % (0.0-8.0); NEUT % 52.9 % (16.0-70.0); PLATELET COUNT 98 TH/MM3 (150-450); RED BLOOD COUNT 4.31 MIL/MM3 (4.50-5.90); RED CELL DISTRIBUTION WIDTH 13.6 % (11.6-17.2); WHITE BLOOD COUNT 8.8 TH/MM3 (4.0-11.0)
[2017-02-17 00:20] LABS: APTT (PATIENT) 26.8 SEC (24.3-30.1)
[2017-02-17 00:27] LABS: HEMO FLAGS AUTO DIFF
[2017-02-17 01:15] LABS: SCAN/DIFF AUTO DIFF CONFIRMED
[2017-02-17 01:16] LABS: PLATELET ESTIMATE SMEAR LOW (NORMAL); PLATELET MORPHOLOGY ENLARGED (NORMAL)
[2017-02-17] MEDS: Intra-Venous ALTEPLASE 10 MG/500 ML NS IV PRN ×6 (01:45→15:26)
[2017-02-17 03:49] LABS: AUTOMATED NEUTROPHIL # 4.7 TH/MM3 (1.8-7.7); BASOPHIL % 0.5 % (0.0-2.0); EOSINOPHIL # 0.2 TH/MM3 (0-0.4); HEMATOCRIT 39.2 % (39.0-51.0); HEMO FLAGS DIFF FINAL; LYMPH % 28.5 % (9.0-44.0); LYMPHOCYTE # 2.2 TH/MM3 (1.0-4.8); MEAN CELL VOLUME 89.5 FL (80.0-100.0); MEAN CORPUSCULAR HGB CONC 33.5 % (32.0-36.0); MONO % 7.2 % (0.0-8.0); NEUT % 60.8 % (16.0-70.0); PLATELET COUNT 101 TH/MM3 (150-450); RED BLOOD COUNT 4.38 MIL/MM3 (4.50-5.90); RED CELL DISTRIBUTION WIDTH 13.5 % (11.6-17.2); WHITE BLOOD COUNT 7.7 TH/MM3 (4.0-11.0)
[2017-02-17] MEDS: CHLORHEXIDINE GLUCONATE 2 % 1 PACK (2 CLOTHS)(taper/protocol) TOPICAL SCH (04:00)
[2017-02-17 04:06] LABS: APTT (PATIENT) 26.6 SEC (24.3-30.1)
[2017-02-17 04:52] LABS: ALKALINE PHOSPHATASE 71 U/L (45-117); ALT (GPT) 18 U/L (12-78); ANION GAP 7 MEQ/L (5-15); AST (GOT) 13 U/L (15-37); BICARBONATE 26.6 MEQ/L (21.0-32.0); BLOOD UREA NITROGEN 23 MG/DL (7-18); CHLORIDE 104 MEQ/L (98-107); GLOMERULAR FILTRATION RATE 60 ML/MIN (>89); HDL CHOLESTEROL 29.4 MG/DL (40.0-60.0); LDL CHOLESTEROL 89 MG/DL (0-99); POTASSIUM 3.5 MEQ/L (3.5-5.1); SODIUM (NA) 138 MEQ/L (136-145); TOTAL BILIRUBIN ADULT 0.7 MG/DL (0.2-1.0)
[2017-02-17] MEDS: INSULIN ASPART SUPPLEMENTAL SCALE SQ SCH ×4 (08:00→21:00)
[2017-02-17] MEDS: INSULIN HUMAN NPH/R 70/30 1,000 UNITS/10 ML VIAL SQ SCH ×2 (08:31→16:55)
[2017-02-17 08:52] LABS: AUTOMATED NEUTROPHIL # 5.1 TH/MM3 (1.8-7.7); BASOPHIL % 0.6 % (0.0-2.0); EOSINOPHIL # 0.2 TH/MM3 (0-0.4); EOSINOPHIL % 3.1 % (0.0-4.0); HEMATOCRIT 39.6 % (39.0-51.0); LYMPH % 20.9 % (9.0-44.0); LYMPHOCYTE # 1.6 TH/MM3 (1.0-4.8); MEAN CELL VOLUME 89.8 FL (80.0-100.0); MEAN CORPUSCULAR HEMOGLOBIN 29.8 PG (27.0-34.0); MEAN CORPUSCULAR HGB CONC 33.2 % (32.0-36.0); NEUT % 68.4 % (16.0-70.0); PLATELET COUNT 98 TH/MM3 (150-450); RED BLOOD COUNT 4.41 MIL/MM3 (4.50-5.90); RED CELL DISTRIBUTION WIDTH 13.4 % (11.6-17.2); WHITE BLOOD COUNT 7.5 TH/MM3 (4.0-11.0)
[2017-02-17 09:02] LABS: APTT (PATIENT) 31.1 SEC (24.3-30.1)
[2017-02-17 09:06] LABS: HEMO FLAGS AUTO DIFF
--- NOTE | 2017-02-17 09:18 | HHI.PR ---
Subjective Remarks Follow-up recurrent pulmonary embolism 02/16/17-patient seen and examined, denies any chest pain or shortness of breath. No acute event overnight. Currently on heparin drip. Vitals stable. 02/17/17-patient seen and examined, currently on heparin drip and TPA. No acute event overnight. Denies any shortness of breath or chest pain. No hemoptysis. Although patient is nothing by mouth however he had one glass of orange juice Objective Vitals Vital Signs Date Time Temp Pulse Resp B/P (MAP) Pulse Ox O2 Delivery O2 Flow Rate FiO2 02/17/17 08:02 97 Nasal Cannula 3.00 02/17/17 07:00 74 02/17/17 06:00 71 02/17/17 04:00 98.4 72 16 140/83 (102) 95 02/17/17 04:00 72 02/17/17 02:00 70 02/17/17 00:00 98.3 70 18 111/68 (82) 96 02/17/17 00:00 70 02/16/17 23:00 73 02/16/17 22:00 77 02/16/17 21:30 79 02/16/17 21:30 98.4 79 16 121/78 (92) 99 02/16/17 21:00 99 Nasal Cannula 2.00 02/16/17 18:00 88 02/16/17 17:00 82 02/16/17 16:00 79 02/16/17 16:00 98.3 79 22 113/69 (84) 97 02/16/17 15:00 85 02/16/17 15:00 85 02/16/17 14:00 79 02/16/17 14:00 79 02/16/17 13:00 80 02/16/17 13:00 80 02/16/17 12:00 71 02/16/17 12:00 98.3 71 19 125/79 (94) 98 02/16/17 12:00 71 02/16/17 11:01 80 02/16/17 11:00 78 02/16/17 11:00 78 02/16/17 10:00 75 02/16/17 10:00 75 I/O 02/16/17 02/16/17 02/16/17 02/17/17 02/17/17 02/17/17 07:00 15:00 23:00 07:00 15:00 23:00 Intake Total 0 ml 700 ml 1547 ml Output Total 800 ml 1900 ml 550 ml Balance -800 ml -1200 ml 997 ml Intake Oral 0 ml 700 ml 240 ml IV Total 1307 ml Output Urine Total 800 ml 1900 ml 550 ml Stool Total 0 ml 0 ml Result Diagram: 02/17/17 0842 02/17/17 0315 Imaging Last Impressions Lower Extremity Ultrasound 02/15/17 1340 Signed Impressions: Service Date/Time: Wednesday, February 15, 2017 13:49 - CONCLUSION: There is occlusive thrombus within the mid femoral vein extending distally into the popliteal vein and calf veins. Lars Anderson MD CT Angiography 02/15/17 1340 Signed Impressions: Service Date/Time: Wednesday, February 15, 2017 16:26 - CONCLUSION: 1. There is an acute saddle embolus with extensive PE extending into the more peripheral pulmonary artery branches bilaterally. 2. There are heart finding suggesting right heart strain which is closely related to right ventricular dysfunction and has been shown to be an independent predictor of adverse clinical outcome. The above findings were related to the ordering physician at the time of this dictation. Lars Anderson MD Objective Remarks GENERAL: NAD SKIN: Warm and dry. HEAD: Normocephalic. EYES: No scleral icterus. No injection or drainage. NECK: Supple, trachea midline. No JVD or lymphadenopathy. CARDIOVASCULAR: Regular rate and rhythm without murmurs, gallops, or rubs. RESPIRATORY: Breath sounds equal bilaterally. No accessory muscle use. GASTROINTESTINAL: Abdomen soft, non-tender, nondistended. MUSCULOSKELETAL: No cyanosis, or edema. BACK: Nontender without obvious deformity. No CVA tenderness. A/P Problem List: (1) Recurrent pulmonary embolism ICD Code: I26.99 - Other pulmonary embolism without acute cor pulmonale (2) COPD (chronic obstructive pulmonary disease) ICD Code: J44.9 - Chronic obstructive pulmonary disease, unspecified (3) Diabetes mellitus, type II ICD Code: E11.9 - Type 2 diabetes mellitus without complications (4) Noncompliance ICD Code: Z91.19 - Patient's noncompliance with other medical treatment and regimen (5) Left leg DVT ICD Code: I82.402 - Acute embolism and thrombosis of unspecified deep veins of left lower extremity Assessment and Plan 61-year-old man with Recurrent pulmonary embolism Left lower extremity DVT CT pulmonary angiogram positive for PE Left lower extremity Doppler positive for DVT Currently on heparin drip, likely with switch to by mouth Coumadin versus Xarelto possible today Currently on TPA as well per Radiology 2-D echo with EF of 65-70% Appreciate input from hematology, pulmonary medicine Will need outpatient hypercoagulable workup May need repeat CT angiogram today 02/17/17 Diabetes type 2 Continue to hold metformin Continue sliding scale 2 medium Continue NovoLog 70/30 5 units twice a day hemoglobin A1c, lipid profile CKD Continue to monitor renal function, and avoid all nephrotoxic drugs COPD No exacerbation DuoNeb when necessary Leukocytosis Stress reactive Continue to monitor CBC Mild hyponatremia Monitor electrolyte DVT prophylaxis: Rj Lopez MD Feb 17, 2017 09:18
--- NOTE | 2017-02-17 10:13 | RADRPT ---
EXAM DATE/TIME: 02/16/2017 21:09 [facility] COMPARISON: No previous studies available for comparison. INDICATIONS : Patient presents with pulmonary embolism in need of central line placement for medication infusion. MEDICAL HISTORY : HTN DM Cad s/p 2 WV - no stents Suspects copd SURGICAL HISTORY : Coronary angiograms Carpal tunnel bilateral Lower lumbar Left knee sx - arthroscopic ENCOUNTER: Initial ACUITY: 1 day PAIN SCORE: 0/10 LOCATION: N/A FLUORO TIME: 0.5 minutes IMAGE SERIES: 0 ACCESS: Right internal jugular vein DEVICE(S): 1.) 7 [place] triple lumen 20 cm Arrow central line PROCEDURE : 1. Ultrasound guided venipuncture. 2. Fluoroscopic guidance. 3. Central line placement. The risks, benefits and alternatives to the procedure were explained and verbal and written consent w as obtained. The site was prepped in sterile fashion. Full sterile technique was used, including ca p, mask, sterile gloves and gown and a large sterile sheet. Hand hygiene and 2% chlorhexidine prep w as utilized per protocol for cutaneous antisepsis with appropriate dry time for site. Sterile gel an d sterile probe cover were utilized for ultrasound guidance. The skin and subcutaneous tissues were infiltrated with local anesthetic solution. A suitable site a nancy the vein was selected with ultrasound and fluoroscopic guidance. A small incision was made. Th e vein was accessed under direct ultrasound visualization using the micropuncture technique. The antonette ropuncture set was exchanged for a 0.035 wire. The tract was dilated. The catheter was advanced int o position under direct fluoroscopic visualization. The catheter was fixed in place with suture and a sterile dressing was applied. The patient tolerated the procedure well and there were no complications. CONCLUSION: Uncomplicated line placement as above. TPA infusion will be initiated through the central port of the catheter. Dalton Chino MD on February 17, 2017 at 10:11 Board Certified Radiologist. This report was verified electronically.
[2017-02-17 10:28] LABS: PLATELET ESTIMATE SMEAR LOW (NORMAL); PLATELET MORPHOLOGY NORMAL (NORMAL); SCAN/DIFF AUTO DIFF CONFIRMED
--- NOTE | 2017-02-17 14:19 | PD.ONC.PN ---
Subjective Subjective Remarks Afebrile overnight. Patient resting in bed. Tolerating TPA. Just finished talking with Dr. Chino. TPA to complete at 5PM today. Objective Data Date Time Temp Pulse Resp B/P (MAP) Pulse Ox O2 Delivery O2 Flow Rate FiO2 02/17/17 14:00 88 02/17/17 12:00 79 02/17/17 12:00 98.2 79 24 171/83 (112) 100 02/17/17 10:00 72 02/17/17 08:02 97 Nasal Cannula 3.00 02/17/17 08:00 76 02/17/17 08:00 98.2 76 18 153/74 (100) 96 02/17/17 08:00 76 02/17/17 07:00 74 02/17/17 06:00 71 02/17/17 04:00 98.4 72 16 140/83 (102) 95 02/17/17 04:00 72 02/17/17 02:00 70 02/17/17 00:00 98.3 70 18 111/68 (82) 96 02/17/17 00:00 70 02/16/17 23:00 73 02/16/17 22:00 77 02/16/17 21:30 79 02/16/17 21:30 98.4 79 16 121/78 (92) 99 02/16/17 21:00 99 Nasal Cannula 2.00 02/16/17 18:00 88 02/16/17 17:00 82 02/16/17 16:00 79 02/16/17 16:00 98.3 79 22 113/69 (84) 97 02/16/17 15:00 85 02/16/17 15:00 85 02/17/17 02/17/17 02/17/17 07:00 15:00 23:00 Intake Total 1547 ml Output Total 550 ml Balance 997 ml Result Diagram: 02/17/17 0842 02/17/17 0315 Laboratory Results Laboratory Tests Test 02/16/17 23:50 02/17/17 03:15 02/17/17 08:42 White Blood Count 8.8 TH/MM3 7.7 TH/MM3 7.5 TH/MM3 Red Blood Count 4.31 MIL/MM3 4.38 MIL/MM3 4.41 MIL/MM3 Hemoglobin 13.1 GM/DL 13.1 GM/DL 13.1 GM/DL Hematocrit 38.3 % 39.2 % 39.6 % Mean Corpuscular Volume 88.9 FL 89.5 FL 89.8 FL Mean Corpuscular Hemoglobin 30.3 PG 30.0 PG 29.8 PG Mean Corpuscular Hemoglobin Concent 34.1 % 33.5 % 33.2 % Red Cell Distribution Width 13.6 % 13.5 % 13.4 % Platelet Count 98 TH/MM3 101 TH/MM3 98 TH/MM3 Mean Platelet Volume 9.9 FL 10.1 FL 9.6 FL Neutrophils (%) (Auto) 52.9 % 60.8 % 68.4 % Lymphocytes (%) (Auto) 37.2 % 28.5 % 20.9 % Monocytes (%) (Auto) 6.4 % 7.2 % 7.0 % Eosinophils (%) (Auto) 2.8 % 3.0 % 3.1 % Basophils (%) (Auto) 0.7 % 0.5 % 0.6 % Neutrophils # (Auto) 4.7 TH/MM3 4.7 TH/MM3 5.1 TH/MM3 Lymphocytes # (Auto) 3.3 TH/MM3 2.2 TH/MM3 1.6 TH/MM3 Monocytes # (Auto) 0.6 TH/MM3 0.6 TH/MM3 0.5 TH/MM3 Eosinophils # (Auto) 0.2 TH/MM3 0.2 TH/MM3 0.2 TH/MM3 Basophils # (Auto) 0.1 TH/MM3 0.0 TH/MM3 0.0 TH/MM3 CBC Comment AUTO DIFF DIFF FINAL AUTO DIFF Differential Comment AUTO DIFF CONFIRMED AUTO DIFF CONFIRMED Platelet Estimate LOW LOW Platelet Morphology Comment ENLARGED NORMAL Activated Partial Thromboplast Time 26.8 SEC 26.6 SEC 31.1 SEC Fibrinogen 330 mg/dL 306 mg/dL 189 mg/dL Blood Urea Nitrogen 23 MG/DL Creatinine 1.23 MG/DL Random Glucose 125 MG/DL Total Protein 6.7 GM/DL Albumin 3.1 GM/DL Calcium Level 8.5 MG/DL Alkaline Phosphatase 71 U/L Aspartate Amino Transf (AST/SGOT) 13 U/L Alanine Aminotransferase (ALT/SGPT) 18 U/L Total Bilirubin 0.7 MG/DL Sodium Level 138 MEQ/L Potassium Level 3.5 MEQ/L Chloride Level 104 MEQ/L Carbon Dioxide Level 26.6 MEQ/L Anion Gap 7 MEQ/L Estimat Glomerular Filtration Rate 60 ML/MIN Triglycerides Level 167 MG/DL Cholesterol Level 152 MG/DL LDL Cholesterol 89 MG/DL HDL Cholesterol 29.4 MG/DL Cholesterol/HDL Ratio 5.17 RATIO Administered Medications Medications (Trade) Dose Ordered Sig/Nidia Route PRN Reason Start Time Stop Time Status Last Admin Dose Admin Chlorhexidine Gluconate (Chlorhexidine 2% Cloth) 3 pack DAILY@04 TOPICAL 02/16/17 04:00 02/20/17 04:01 02/17/17 04:00 Insulin Aspart (NovoLOG SUPPLEMENTAL SCALE) 1 ACHS SLIDING SCALE SQ 02/16/17 12:00 02/17/17 13:11 Insulin Human Isoph/Insulin Regular (NovoLIN 70/30 INJ) 5 units BID@ SQ 02/16/17 17:00 02/17/17 08:31 Alteplase, Recombinant 10 mg/ Sodium Chloride 500 ml @ 100 mls/hr TITRATE PRN IV See Protocol Table 02/16/17 21:15 02/16/17 18:45 Sodium Chloride 1,000 ml @ 30 mls/hr Q24H IV 02/16/17 21:00 02/16/17 21:36 Heparin Sodium/ Dextrose 250 ml @ 5 mls/hr Q24H IV 02/16/17 21:15 02/16/17 21:33 Objective Remarks GENERAL: Middle aged male supine in bed resting. SKIN: Warm and dry. HEAD: Normocephalic. EYES: No injection or drainage. NECK: Supple, trachea midline. CARDIOVASCULAR: Regular rate and rhythm RESPIRATORY: Breath sounds equal bilaterally. No accessory muscle use. GASTROINTESTINAL: Abdomen soft, non-tender, nondistended. EXTREMITIES: No cyanosis NEUROLOGICAL: awake and alert, normal speech. Assessment/Plan Problem List: (1) Recurrent pulmonary embolism ICD Codes: I26.99 - Other pulmonary embolism without acute cor pulmonale Plan: --Recurrent pulmonary embolism. --had first episode of pulmonary embolism in 2011 after a long car trip. --was on Coumadin for many years and stated that he tolerated it well. --was switched to Xarelto a year ago. --has been driving extensively the last 2-3 months -- drove to [place] back and forth three times. Each trip is about 18 hours. --ran out of Xarelto about 3 weeks ago and was off of Xarelto for 2 weeks. --just started back on Xarelto last Tuesday. --By Tuesday he started having pulmonary symptoms and the following day his left lower extremity has increased edema and tenderness. --CT angiogram showed saddle embolus with extensive pulmonary embolism extending into the peripheral pulmonary artery branches bilaterally. --echo shoed right heart strain, was given TPA--to be completed 02/17 at 5PM. --think the patient has underlying hypercoagulable state and we should do a hypercoagulable workup, but this is not the right time to do it. can be done as outpatient. --I do not think he has failed Xarelto. Assessment 61y/o male with recurrent DVT and pulmonary embolism. h/o Pulmonary embolism in 2011 due to prolonged car trip. He was on Coumadin for many years. He was switched to Xarelto a year ago. Hypertension. Diabetes mellitus. Coronary disease with two myocardial infarctions, last one about 6 years ago. Chronic obstructive pulmonary disease. Plan 1. start heparin gtt tonight after completion of TPA 2. monitor overnight. will consider starting back on xarelto tomorrow if patient remains stable. Attending Statement The exam, history, and the medical decision-making described in the above note were completed with the assistance of the mid-level provider. I reviewed and agree with the findings presented. I attest that I had a [id number] encounter with the patient on the same day, and personally performed and documented my assessment and findings in the medical record.Tolerating /TPA. No SOB/CP. LLE edema resolved, non tender. Will complete tPa and start heparin tonight. Once stable, can bride to coumadin or Xarelto. Discussed with . Appreciate pulmonary input. Brandie Chandra Feb 17, 2017 14:19 Robin Lynn MD Feb 17, 2017 15:14
[2017-02-17 15:30] LABS: AUTOMATED NEUTROPHIL # 5.6 TH/MM3 (1.8-7.7); BASOPHIL % 0.5 % (0.0-2.0); EOSINOPHIL # 0.2 TH/MM3 (0-0.4); EOSINOPHIL % 2.3 % (0.0-4.0); HEMATOCRIT 38.8 % (39.0-51.0); LYMPH % 21.2 % (9.0-44.0); LYMPHOCYTE # 1.7 TH/MM3 (1.0-4.8); MEAN CELL VOLUME 89.2 FL (80.0-100.0); MEAN CORPUSCULAR HEMOGLOBIN 29.7 PG (27.0-34.0); MEAN CORPUSCULAR HGB CONC 33.3 % (32.0-36.0); MONO % 5.9 % (0.0-8.0); NEUT % 70.1 % (16.0-70.0); PLATELET COUNT 95 TH/MM3 (150-450); RED BLOOD COUNT 4.35 MIL/MM3 (4.50-5.90); RED CELL DISTRIBUTION WIDTH 13.5 % (11.6-17.2); WHITE BLOOD COUNT 7.9 TH/MM3 (4.0-11.0)
[2017-02-17 15:33] LABS: HEMO FLAGS AUTO DIFF
[2017-02-17 15:55] LABS: APTT (PATIENT) 32.9 SEC (24.3-30.1)
[2017-02-17 16:11] LABS: SCAN/DIFF AUTO DIFF CONFIRMED
[2017-02-17] MEDS: HEPARIN-D5W 25,000 U/250 ML 250 ML IV PRN (16:58)
[2017-02-17] MEDS: ACETAMINOPHEN 325 MG TAB PO PRN (18:41)
[2017-02-17 21:38] LABS: HEMOGLOBIN A1a 1.1 %; HEMOGLOBIN Ao 73.5 %; HEMOGLOBIN F 2.6 %; HEMOGLOBIN P3 4.6 %
[2017-02-18] VITALS (13 sets, daily range): BP systolic 105–160; BP diastolic 61–88; PULSE 64–102; RESP 14–20; TEMP 97.6–100; O2SAT 94–98
[2017-02-18 00:10] LABS: APTT (PATIENT) 64.1 SEC (24.3-30.1)
[2017-02-18] MEDS: HEPARIN-D5W 25,000 U/250 ML 250 ML IV PRN ×2 (01:17→15:31)
[2017-02-18] MEDS: CHLORHEXIDINE GLUCONATE 2 % 1 PACK (2 CLOTHS)(taper/protocol) TOPICAL SCH (04:00)
[2017-02-18 04:43] LABS: HEMATOCRIT 37.3 % (39.0-51.0); MEAN CELL VOLUME 88.9 FL (80.0-100.0); MEAN CORPUSCULAR HEMOGLOBIN 29.9 PG (27.0-34.0); MEAN CORPUSCULAR HGB CONC 33.6 % (32.0-36.0); PLATELET COUNT 102 TH/MM3 (150-450); RED CELL DISTRIBUTION WIDTH 13.5 % (11.6-17.2); REVIEW FLAG FINAL; WHITE BLOOD COUNT 7.5 TH/MM3 (4.0-11.0)
[2017-02-18 04:52] LABS: APTT (PATIENT) 74.1 SEC (24.3-30.1)
[2017-02-18] MEDS: INSULIN ASPART SUPPLEMENTAL SCALE SQ SCH ×4 (08:00→20:58)
[2017-02-18] MEDS: INSULIN HUMAN NPH/R 70/30 1,000 UNITS/10 ML VIAL SQ SCH ×2 (08:17→16:31)
--- NOTE | 2017-02-18 08:40 | HHI.PR ---
Subjective Remarks Follow-up recurrent pulmonary embolism 02/16/17-patient seen and examined, denies any chest pain or shortness of breath. No acute event overnight. Currently on heparin drip. Vitals stable. 02/17/17-patient seen and examined, currently on heparin drip and TPA. No acute event overnight. Denies any shortness of breath or chest pain. No hemoptysis. Although patient is nothing by mouth however he had one glass of orange juice 02/18/17-patient seen and examined, completely TPA. Denies any shortness of breath. Currently on heparin drip. No acute event overnight. Objective Vitals Vital Signs Date Time Temp Pulse Resp B/P (MAP) Pulse Ox O2 Delivery O2 Flow Rate FiO2 02/18/17 08:27 96 21 02/18/17 06:00 76 02/18/17 04:00 97.7 75 14 108/61 (77) 94 02/18/17 04:00 75 02/18/17 02:00 69 02/18/17 00:00 64 02/18/17 00:00 97.9 64 16 121/86 (98) 98 02/17/17 23:52 98 Nasal Cannula 3.00 02/17/17 22:00 71 02/17/17 20:04 97 Nasal Cannula 3.00 02/17/17 20:00 78 02/17/17 20:00 98.2 78 19 143/78 (99) 99 02/17/17 18:00 77 02/17/17 16:00 98.2 79 15 146/74 (98) 100 02/17/17 16:00 79 02/17/17 14:00 88 02/17/17 12:00 79 02/17/17 12:00 98.2 79 24 171/83 (112) 100 02/17/17 10:00 72 I/O 02/17/17 02/17/17 02/17/17 02/18/17 02/18/17 02/18/17 07:00 15:00 23:00 07:00 15:00 23:00 Intake Total 1547 ml 2030 ml 750.9 ml Output Total 550 ml 1000 ml 600 ml Balance 997 ml 1030 ml 150.9 ml Intake Oral 240 ml 960 ml 480 ml IV Total 1307 ml 1070 ml 270.9 ml Output Urine Total 550 ml 1000 ml 600 ml Stool Total 0 ml 0 ml Result Diagram: 02/18/17 0418 02/17/17 0315 Imaging Last Impressions Central Venous Line 02/16/17 0000 Signed Impressions: Service Date/Time: Thursday, February 16, 2017 21:09 - CONCLUSION: Uncomplicated line placement as above. TPA infusion will be initiated through the central port of the catheter. Dalton Chino MD Lower Extremity Ultrasound 02/15/17 1340 Signed Impressions: Service Date/Time: Wednesday, February 15, 2017 13:49 - CONCLUSION: There is occlusive thrombus within the mid femoral vein extending distally into the popliteal vein and calf veins. Lars Anderson MD CT Angiography 02/15/17 1340 Signed Impressions: Service Date/Time: Wednesday, February 15, 2017 16:26 - CONCLUSION: 1. There is an acute saddle embolus with extensive PE extending into the more peripheral pulmonary artery branches bilaterally. 2. There are heart finding suggesting right heart strain which is closely related to right ventricular dysfunction and has been shown to be an independent predictor of adverse clinical outcome. The above findings were related to the ordering physician at the time of this dictation. Lars Anderson MD Objective Remarks GENERAL: NAD SKIN: Warm and dry. HEAD: Normocephalic. EYES: No scleral icterus. No injection or drainage. NECK: Supple, trachea midline. No JVD or lymphadenopathy. CARDIOVASCULAR: Regular rate and rhythm without murmurs, gallops, or rubs. RESPIRATORY: Breath sounds equal bilaterally. No accessory muscle use. GASTROINTESTINAL: Abdomen soft, non-tender, nondistended. MUSCULOSKELETAL: No cyanosis, or edema. BACK: Nontender without obvious deformity. No CVA tenderness. Procedures None A/P Problem List: (1) Recurrent pulmonary embolism ICD Code: I26.99 - Other pulmonary embolism without acute cor pulmonale (2) COPD (chronic obstructive pulmonary disease) ICD Code: J44.9 - Chronic obstructive pulmonary disease, unspecified (3) Diabetes mellitus, type II ICD Code: E11.9 - Type 2 diabetes mellitus without complications (4) Noncompliance ICD Code: Z91.19 - Patient's noncompliance with other medical treatment and regimen (5) Left leg DVT ICD Code: I82.402 - Acute embolism and thrombosis of unspecified deep veins of left lower extremity Assessment and Plan 61-year-old man with Recurrent pulmonary embolism Left lower extremity DVT CT pulmonary angiogram positive for PE Left lower extremity Doppler positive for DVT Currently on heparin drip, likely will start by mouth Coumadin versus Xarelto possible today Completed TPA 02/17/17 2-D echo with EF of 65-70% Appreciate input from hematology, pulmonary medicine Will need outpatient hypercoagulable workup Diabetes type 2 Continue to hold metformin Continue sliding scale 2 medium Continue NovoLog 70/30 5 units twice a day hemoglobin A1c, lipid profile CKD Continue to monitor renal function, and avoid all nephrotoxic drugs COPD No exacerbation DuoNeb when necessary Leukocytosis Stress reactive Continue to monitor CBC Mild hyponatremia Monitor electrolyte DVT prophylaxis: Rj Lopez MD Feb 18, 2017 08:40
--- NOTE | 2017-02-18 10:55 | PD.ONC.PN ---
Subjective Subjective Remarks Now on heparin. No bleeding noted. No CP/SOB. No LLE pain. Objective Data Date Time Temp Pulse Resp B/P (MAP) Pulse Ox O2 Delivery O2 Flow Rate FiO2 02/18/17 08:27 96 21 02/18/17 06:00 76 02/18/17 04:00 97.7 75 14 108/61 (77) 94 02/18/17 04:00 75 02/18/17 02:00 69 02/18/17 00:00 64 02/18/17 00:00 97.9 64 16 121/86 (98) 98 02/17/17 23:52 98 Nasal Cannula 3.00 02/17/17 22:00 71 02/17/17 20:04 97 Nasal Cannula 3.00 02/17/17 20:00 78 02/17/17 20:00 98.2 78 19 143/78 (99) 99 02/17/17 18:00 77 02/17/17 16:00 98.2 79 15 146/74 (98) 100 02/17/17 16:00 79 02/17/17 14:00 88 02/17/17 12:00 79 02/17/17 12:00 98.2 79 24 171/83 (112) 100 02/18/17 02/18/17 02/18/17 07:00 15:00 23:00 Intake Total 750.9 ml Output Total 600 ml Balance 150.9 ml Result Diagram: 02/18/17 0418 02/17/17 0315 Laboratory Results Laboratory Tests Test 02/17/17 14:30 02/17/17 23:20 02/18/17 04:18 White Blood Count 7.9 TH/MM3 7.5 TH/MM3 Red Blood Count 4.35 MIL/MM3 4.20 MIL/MM3 Hemoglobin 12.9 GM/DL 12.5 GM/DL Hematocrit 38.8 % 37.3 % Mean Corpuscular Volume 89.2 FL 88.9 FL Mean Corpuscular Hemoglobin 29.7 PG 29.9 PG Mean Corpuscular Hemoglobin Concent 33.3 % 33.6 % Red Cell Distribution Width 13.5 % 13.5 % Platelet Count 95 TH/MM3 102 TH/MM3 Mean Platelet Volume 9.6 FL 9.5 FL Neutrophils (%) (Auto) 70.1 % Lymphocytes (%) (Auto) 21.2 % Monocytes (%) (Auto) 5.9 % Eosinophils (%) (Auto) 2.3 % Basophils (%) (Auto) 0.5 % Neutrophils # (Auto) 5.6 TH/MM3 Lymphocytes # (Auto) 1.7 TH/MM3 Monocytes # (Auto) 0.5 TH/MM3 Eosinophils # (Auto) 0.2 TH/MM3 Basophils # (Auto) 0.0 TH/MM3 CBC Comment AUTO DIFF Differential Comment AUTO DIFF CONFIRMED Activated Partial Thromboplast Time 32.9 SEC 64.1 SEC 74.1 SEC Fibrinogen 131 mg/dL Administered Medications Medications (Trade) Dose Ordered Sig/Nidia Route PRN Reason Start Time Stop Time Status Last Admin Dose Admin Chlorhexidine Gluconate (Chlorhexidine 2% Cloth) 3 pack DAILY@04 TOPICAL 02/16/17 04:00 02/20/17 04:01 02/18/17 04:00 Insulin Aspart (NovoLOG SUPPLEMENTAL SCALE) 1 ACHS SLIDING SCALE SQ 02/16/17 12:00 02/17/17 21:00 Insulin Human Isoph/Insulin Regular (NovoLIN 70/30 INJ) 5 units BID@08,17 SQ 02/16/17 17:00 02/18/17 08:17 Acetaminophen (Tylenol) 650 mg Q4H PRN PO Temp > 100.4 02/16/17 10:00 02/17/17 18:41 Objective Remarks GENERAL: Well-nourished, well-developed patient. SKIN: Warm and dry. HEAD: Normocephalic. EYES: No scleral icterus. No injection or drainage. NECK: Supple, trachea midline. No JVD or lymphadenopathy. Right neck cath site old blood. LYMPHATIC: No adenopathy. CARDIOVASCULAR: Regular rate and rhythm without murmurs. RESPIRATORY: Breath sounds equal bilaterally. No accessory muscle use. GASTROINTESTINAL: Abdomen soft, non-tender, nondistended. EXTREMITIES: No cyanosis, or edema. LLE non tender, and good pulse. MUSCULOSKELETAL: Adequate muscle tone. NEUROLOGICAL: No obvious focal deficit. Awake, alert, and oriented x3. PSYCHIATRIC: Appropriate mood and affect; insight and judgment normal. Assessment/Plan Problem List: (1) Recurrent pulmonary embolism ICD Codes: I26.99 - Other pulmonary embolism without acute cor pulmonale Plan: --Recurrent pulmonary embolism s/p thrombolytic therapy and now on heparin. SOB/CP resolved. --had first episode of pulmonary embolism in 2011 after a long car trip. --was on Coumadin for many years and stated that he tolerated it well. --was switched to Xarelto a year ago. --has been driving extensively the last 2-3 months -- drove to [place] back and forth three times. Each trip is about 18 hours. --ran out of Xarelto about 3 weeks ago and was off of Xarelto for 2 weeks. --just started back on Xarelto last Tuesday. --By Tuesday he started having pulmonary symptoms and the following day his left lower extremity has increased edema and tenderness. --CT angiogram showed saddle embolus with extensive pulmonary embolism extending into the peripheral pulmonary artery branches bilaterally. --echo shoed right heart strain, was given TPA--to be completed 02/17 at 5PM. --think the patient has underlying hypercoagulable state and we should do a hypercoagulable workup, but this is not the right time to do it. can be done as outpatient. --I do not think he has failed Xarelto. Assessment 61y/o male with recurrent DVT and pulmonary embolism. h/o Pulmonary embolism in 2011 due to prolonged car trip. He was on Coumadin for many years. He was switched to Xarelto a year ago. Hypertension. Diabetes mellitus. Coronary disease with two myocardial infarctions, last one about 6 years ago. Chronic obstructive pulmonary disease. Plan 1. Continue heparin gtt for another day and consider bridging to coumadin or Xarelto 15mg po BID loading dose. Pt has not decided if he wants to stay on Xarelto to go back to coumadin which he tolerated well in the past. Pt and his has questions regarding IVC filter placement. We have extensive discussion of pros and cons of IVC filter. They will think about the option. 2. monitor overnight. Robin Lynn MD Feb 18, 2017 10:55
[2017-02-18 11:10] LABS: APTT (PATIENT) 77.4 SEC (24.3-30.1)
[2017-02-18 17:09] LABS: APTT (PATIENT) 51.2 SEC (24.3-30.1)
--- NOTE | 2017-02-18 17:45 | HHI.PR ---
Subjective Remarks The patient is doing well. no sob he wants to go home no chest pain Objective Vital Signs Date Time Temp Pulse Resp B/P (MAP) Pulse Ox O2 Delivery O2 Flow Rate FiO2 02/18/17 16:00 97.6 90 20 143/78 (99) 97 02/18/17 16:00 90 02/18/17 14:00 91 02/18/17 12:00 79 02/18/17 12:00 98.6 79 18 137/75 (95) 94 02/18/17 10:00 79 02/18/17 08:27 96 21 02/18/17 08:00 98.3 75 20 160/88 (112) 95 02/18/17 08:00 75 02/18/17 06:00 76 02/18/17 04:00 97.7 75 14 108/61 (77) 94 02/18/17 04:00 75 02/18/17 02:00 69 02/18/17 00:00 64 02/18/17 00:00 97.9 64 16 121/86 (98) 98 02/17/17 23:52 98 Nasal Cannula 3.00 02/17/17 22:00 71 02/17/17 20:04 97 Nasal Cannula 3.00 02/17/17 20:00 78 02/17/17 20:00 98.2 78 19 143/78 (99) 99 02/17/17 18:00 77 I/O 02/17/17 02/17/17 02/17/17 02/18/17 02/18/17 02/18/17 07:00 15:00 23:00 07:00 15:00 23:00 Intake Total 1547 ml 2030 ml 750.9 ml Output Total 550 ml 1000 ml 600 ml Balance 997 ml 1030 ml 150.9 ml Intake Oral 240 ml 960 ml 480 ml IV Total 1307 ml 1070 ml 270.9 ml Output Urine Total 550 ml 1000 ml 600 ml Stool Total 0 ml 0 ml Result Diagram: 02/18/17 0418 02/17/17 0315 Objective Remarks GA: jay jay hent: at. nc. lungs: clear Heart: s1, S2 Abd: obese soft Ext: no sig edema neuro: no chnages skin: no rashes Assessment and Plan Problem List: (1) Pulmonary embolism ICD Codes: I26.99 - Other pulmonary embolism without acute cor pulmonale Status: Acute (2) DVT (deep venous thrombosis) ICD Codes: I82.409 - Acute embolism and thrombosis of unspecified deep veins of unspecified lower extremity Status: Acute Assessment and Plan I think he is ok to leave icu i rec to resume xarelto in am maybe home in 2 days he needs outpxt f/u Problem Qualifiers (1) Pulmonary embolism: (2) DVT (deep venous thrombosis): Chencho Marte MD Feb 18, 2017 17:45
[2017-02-18] MEDS: ACETAMINOPHEN 325 MG TAB PO PRN (18:54)
[2017-02-19] VITALS (8 sets, daily range): BP systolic 115–141; BP diastolic 60–76; PULSE 82–95; RESP 16–20; TEMP 98.3–100; O2SAT 94–100
[2017-02-19 00:09] LABS: APTT (PATIENT) 32.2 SEC (24.3-30.1)
[2017-02-19] MEDS: CHLORHEXIDINE GLUCONATE 2 % 1 PACK (2 CLOTHS)(taper/protocol) TOPICAL SCH (04:00)
[2017-02-19] MEDS: INSULIN ASPART SUPPLEMENTAL SCALE SQ SCH ×5 (09:34→21:12)
[2017-02-19] MEDS: INSULIN HUMAN NPH/R 70/30 1,000 UNITS/10 ML VIAL SQ SCH ×2 (09:34→17:54)
[2017-02-19 10:26] LABS: APTT (PATIENT) 38.7 SEC (24.3-30.1)
[2017-02-19 12:34] LABS: AUTOMATED NEUTROPHIL # 6.6 TH/MM3 (1.8-7.7); BASOPHIL % 0.4 % (0.0-2.0); EOSINOPHIL # 0.2 TH/MM3 (0-0.4); EOSINOPHIL % 2.2 % (0.0-4.0); HEMATOCRIT 36.9 % (39.0-51.0); HEMO FLAGS DIFF FINAL; LYMPH % 20.9 % (9.0-44.0); MEAN CELL VOLUME 89.6 FL (80.0-100.0); MEAN CORPUSCULAR HEMOGLOBIN 30.1 PG (27.0-34.0); MEAN CORPUSCULAR HGB CONC 33.6 % (32.0-36.0); MONO % 7.9 % (0.0-8.0); NEUT % 68.6 % (16.0-70.0); PLATELET COUNT 144 TH/MM3 (150-450); RED BLOOD COUNT 4.12 MIL/MM3 (4.50-5.90); RED CELL DISTRIBUTION WIDTH 13.3 % (11.6-17.2); WHITE BLOOD COUNT 9.6 TH/MM3 (4.0-11.0)
[2017-02-19] MEDS: HEPARIN-D5W 25,000 U/250 ML 250 ML IV PRN (12:56)
--- NOTE | 2017-02-19 13:12 | PD.ONC.PN ---
Subjective Subjective Remarks Afebrile Had pause in heparin therapy early this am for a few hours Report no SOB with activity Denies chest pain Objective Data Date Time Temp Pulse Resp B/P (MAP) Pulse Ox O2 Delivery O2 Flow Rate FiO2 02/19/17 08:00 98.5 95 18 137/75 (95) 94 02/19/17 04:00 98.7 82 17 121/74 (90) 95 02/19/17 00:00 98.3 83 17 119/62 (81) 100 02/18/17 20:13 102 02/18/17 20:00 99.3 100 18 105/61 (76) 96 02/18/17 18:47 100.0 97 18 146/80 (102) 97 02/18/17 16:00 97.6 90 20 143/78 (99) 97 02/18/17 16:00 90 02/18/17 14:00 91 02/19/17 02/19/17 02/19/17 07:00 15:00 23:00 Intake Total 240 ml Balance 240 ml Result Diagram: 02/19/17 1210 02/17/17 0315 Laboratory Results Laboratory Tests Test 02/18/17 16:33 02/18/17 23:40 02/19/17 09:58 02/19/17 12:10 Activated Partial Thromboplast Time 51.2 SEC 32.2 SEC 38.7 SEC White Blood Count 9.6 TH/MM3 Red Blood Count 4.12 MIL/MM3 Hemoglobin 12.4 GM/DL Hematocrit 36.9 % Mean Corpuscular Volume 89.6 FL Mean Corpuscular Hemoglobin 30.1 PG Mean Corpuscular Hemoglobin Concent 33.6 % Red Cell Distribution Width 13.3 % Platelet Count 144 TH/MM3 Mean Platelet Volume 9.8 FL Neutrophils (%) (Auto) 68.6 % Lymphocytes (%) (Auto) 20.9 % Monocytes (%) (Auto) 7.9 % Eosinophils (%) (Auto) 2.2 % Basophils (%) (Auto) 0.4 % Neutrophils # (Auto) 6.6 TH/MM3 Lymphocytes # (Auto) 2.0 TH/MM3 Monocytes # (Auto) 0.8 TH/MM3 Eosinophils # (Auto) 0.2 TH/MM3 Basophils # (Auto) 0.0 TH/MM3 CBC Comment DIFF FINAL Differential Comment Administered Medications Medications (Trade) Dose Ordered Sig/Nidia Route PRN Reason Start Time Stop Time Status Last Admin Dose Admin Sodium Chloride (NS Flush) 2 ml UNSCH PRN IVF FLUSH AFTER USING IV ACCESS 02/15/17 13:45 02/18/17 20:59 Chlorhexidine Gluconate (Chlorhexidine 2% Cloth) 3 pack DAILY@04 TOPICAL 02/16/17 04:00 02/20/17 04:01 02/18/17 04:00 Insulin Aspart (NovoLOG SUPPLEMENTAL SCALE) 1 ACHS SLIDING SCALE SQ 02/16/17 12:00 02/19/17 12:50 Insulin Human Isoph/Insulin Regular (NovoLIN 70/30 INJ) 5 units BID@, SQ 02/16/17 17:00 02/19/17 09:34 Acetaminophen (Tylenol) 650 mg Q4H PRN PO Temp > 100.4 02/16/17 10:00 02/18/17 18:54 Heparin Sodium/ Dextrose 250 ml @ 18 mls/hr TITRATE PRN IV Coagulation Management 02/18/17 09:00 02/19/17 12:56 Objective Remarks GENERAL: Older male, resting in bed watching TV with present. SKIN: Warm and dry. No oozing from lines. HEAD: Normocephalic. EYES: No injection or drainage. NECK: Supple, trachea midline. Right neck cath site old blood. CARDIOVASCULAR: Regular rate and rhythm without murmurs. RESPIRATORY: Clear posteriorly. Breathing unlabored. GASTROINTESTINAL: Abdomen soft, non-tender, nondistended. EXTREMITIES: No cyanosis, or edema. LLE varicose veins noted. MUSCULOSKELETAL: Adequate muscle tone. NEUROLOGICAL: No obvious focal deficit. Awake, alert, and oriented x3. Assessment/Plan Problem List: (1) Recurrent pulmonary embolism ICD Codes: I26.99 - Other pulmonary embolism without acute cor pulmonale Plan: --Recurrent pulmonary embolism s/p thrombolytic therapy and now on heparin. SOB/CP resolved. --had first episode of pulmonary embolism in 2011 after a long car trip. --was on Coumadin for many years and stated that he tolerated it well. --was switched to Xarelto a year ago. --has been driving extensively the last 2-3 months -- drove to [place] back and forth three times. Each trip is about 18 hours. --ran out of Xarelto about 3 weeks ago and was off of Xarelto for 2 weeks. --just started back on Xarelto last Tuesday. --By Tuesday he started having pulmonary symptoms and the following day his left lower extremity has increased edema and tenderness. --CT angiogram showed saddle embolus with extensive pulmonary embolism extending into the peripheral pulmonary artery branches bilaterally. --echo shoed right heart strain, was given TPA--to be completed 02/17 at 5PM. --think the patient has underlying hypercoagulable state and we should do a hypercoagulable workup, but this is not the right time to do it. can be done as outpatient. --I do not think he has failed Xarelto. Assessment 61y/o male with recurrent DVT and pulmonary embolism. h/o Pulmonary embolism in 2011 due to prolonged car trip. He was on Coumadin for many years. He was switched to Xarelto a year ago. Hypertension. Diabetes mellitus. Coronary disease with two myocardial infarctions, last one about 6 years ago. Chronic obstructive pulmonary disease. Plan 1. OK to transition from heparin to Xarelto. Will wait until later this evening to make transition. 2. Start pt on loading dose of Xarelto at 15mg po BID for 21 days followed by maintenance dose of 20mg daily. 3. He should followup with his PCP once discharged for coordination of his anticoagulation. 4. It was discussed with pt the importance of staying on his anticoagulation. Attending Statement The exam, history, and the medical decision-making described in the above note were completed with the assistance of the mid-level provider. I reviewed and agree with the findings presented. I attest that I had a [id number] encounter with the patient on the same day, and personally performed and documented my assessment and findings in the medical record recurrent PE was on Xarelto drives long distance off Xarelto for 2 weeks prior to PE/Pt. stopped Xarelto since he wanted to GET A Tattoo s/p TPA and now on Heparin GTT no chest pain switch back to Xarelto start loading dose of Xarelto X 7 dose D/W RN O/N EVENTS REVIEWED OK TO D/C FROM HEMATOLOGY PERSPECTIVE Allison Brice Feb 19, 2017 13:12 Alan Sanchez MD Feb 19, 2017 14:13
[2017-02-19 13:13] LABS: ALKALINE PHOSPHATASE 73 U/L (45-117); ALT (GPT) 27 U/L (12-78); ANION GAP 5 MEQ/L (5-15); AST (GOT) 21 U/L (15-37); BICARBONATE 29.7 MEQ/L (21.0-32.0); BLOOD UREA NITROGEN 14 MG/DL (7-18); CHLORIDE 97 MEQ/L (98-107); GLOMERULAR FILTRATION RATE 58 ML/MIN (>89); POTASSIUM 4.1 MEQ/L (3.5-5.1); SODIUM (NA) 132 MEQ/L (136-145); TOTAL BILIRUBIN ADULT 0.8 MG/DL (0.2-1.0)
--- NOTE | 2017-02-19 17:28 | HHI.PR ---
Subjective Remarks No fevers overnight. Patient has decided to use Xarelto as a treatment. IVC filter deferred for now, per patient. Objective Vital Signs Date Time Temp Pulse Resp B/P (MAP) Pulse Ox O2 Delivery O2 Flow Rate FiO2 02/19/17 16:18 85 02/19/17 12:00 98.7 83 18 126/69 (88) 97 02/19/17 08:00 98.5 95 18 137/75 (95) 94 02/19/17 04:00 98.7 82 17 121/74 (90) 95 02/19/17 00:00 98.3 83 17 119/62 (81) 100 02/18/17 20:13 102 02/18/17 20:00 99.3 100 18 105/61 (76) 96 02/18/17 18:47 100.0 97 18 146/80 (102) 97 I/O 02/18/17 02/18/17 02/18/17 02/19/17 02/19/17 02/19/17 07:00 15:00 23:00 07:00 15:00 23:00 Intake Total 750.9 ml 240 ml Output Total 600 ml 1400 ml Balance 150.9 ml -1400 ml 240 ml Intake Oral 480 ml 240 ml IV Total 270.9 ml Output Urine Total 600 ml 1400 ml Stool Total 0 ml # Voids 3 # Bowel Movements 2 Result Diagram: 02/19/17 1210 02/19/17 1210 Objective Remarks GENERAL: NAD, A&Ox3 HEAD: Normocephalic. NECK: Supple, trachea midline. No lymphadenopathy. EYES: No scleral icterus. No injection or drainage. CARDIOVASCULAR: Regular rate and rhythm without murmurs, gallops, or rubs. RESPIRATORY: Breath sounds equal bilaterally. No accessory muscle use. GASTROINTESTINAL: Abdomen soft, non-tender, nondistended. MUSCULOSKELETAL: No cyanosis, or edema. SKIN: Warm and dry. NEURO: No focal neurological deficitis. A/P Problem List: (1) Left leg DVT ICD Code: I82.402 - Acute embolism and thrombosis of unspecified deep veins of left lower extremity (2) Recurrent pulmonary embolism ICD Code: I26.99 - Other pulmonary embolism without acute cor pulmonale (3) Pulmonary embolism ICD Code: I26.99 - Other pulmonary embolism without acute cor pulmonale Status: Acute Assessment and Plan Assessment and Plan 61-year-old man admitted secondary to acute pulmonary embolism and left lower extremity DVT Recurrent pulmonary embolism Left lower extremity DVT Transition from heparin drip to Xarelto being Status post TPA 02/17/17 Hematology and pulmonology following Outpatient hypercoagulable workup plan Diabetes mellitus type 2 Follow blood sugars Insulin sliding scale Diabetic diet CKD Follow renal function Avoid all nephrotoxins COPD No exacerbation Leukocytosis Follow CBC Mild hyponatremia Follow sodium levels DVT prophylaxis Xarelto Problem Qualifiers (1) Pulmonary embolism: Scott Valencia MD Feb 19, 2017 17:28
[2017-02-19] MEDS: RIVAROXABAN 15 MG TAB PO SCH ×3 (17:55→21:11)
[2017-02-20] VITALS: BP 133/76; PULSE 82; RESP 19; TEMP 98.5; O2SAT 95
[2017-02-20] MEDS: CHLORHEXIDINE GLUCONATE 2 % 1 PACK (2 CLOTHS)(taper/protocol) TOPICAL SCH (02:38)
[2017-02-20 04:00] VITALS: BP 129/72; PULSE 82; RESP 16; TEMP 99.1; O2SAT 94
[2017-02-20 05:28] LABS: AUTOMATED NEUTROPHIL # 6.7 TH/MM3 (1.8-7.7); BASOPHIL % 0.5 % (0.0-2.0); EOSINOPHIL # 0.3 TH/MM3 (0-0.4); EOSINOPHIL % 3.2 % (0.0-4.0); HEMO FLAGS DIFF FINAL; LYMPH % 24.9 % (9.0-44.0); LYMPHOCYTE # 2.6 TH/MM3 (1.0-4.8); MEAN CELL VOLUME 88.4 FL (80.0-100.0); MEAN CORPUSCULAR HEMOGLOBIN 30.6 PG (27.0-34.0); MEAN CORPUSCULAR HGB CONC 34.6 % (32.0-36.0); MONO % 7.8 % (0.0-8.0); NEUT % 63.6 % (16.0-70.0); PLATELET COUNT 167 TH/MM3 (150-450); RED BLOOD COUNT 4.07 MIL/MM3 (4.50-5.90); RED CELL DISTRIBUTION WIDTH 13.2 % (11.6-17.2); WHITE BLOOD COUNT 10.5 TH/MM3 (4.0-11.0)
[2017-02-20 05:42] LABS: INTERNATIONAL NORMALIZED RATIO 1.2 RATIO; PROTHROMBIN TIME - PATIENT 13.2 SEC (9.8-11.6)
[2017-02-20 06:53] LABS: ALKALINE PHOSPHATASE 71 U/L (45-117); ALT (GPT) 38 U/L (12-78); ANION GAP 10 MEQ/L (5-15); AST (GOT) 29 U/L (15-37); BICARBONATE 25.5 MEQ/L (21.0-32.0); BLOOD UREA NITROGEN 12 MG/DL (7-18); CHLORIDE 97 MEQ/L (98-107); GLOMERULAR FILTRATION RATE 62 ML/MIN (>89); SODIUM (NA) 132 MEQ/L (136-145); TOTAL BILIRUBIN ADULT 1.2 MG/DL (0.2-1.0)
[2017-02-20 07:15] VITALS: PULSE 82
[2017-02-20 08:04] VITALS: BP 145/79; PULSE 88; RESP 18; TEMP 98.9; O2SAT 96
[2017-02-20] MEDS: RIVAROXABAN 15 MG TAB PO SCH (08:27)
[2017-02-20] MEDS: INSULIN HUMAN NPH/R 70/30 1,000 UNITS/10 ML VIAL SQ SCH (08:28)
[2017-02-20] MEDS: INSULIN ASPART SUPPLEMENTAL SCALE SQ SCH (08:29)
[2017-02-20] MEDS ORDERED: XARE20TA PO (10:04)
[2017-02-20] MEDS ORDERED: XARE15TA PO (10:04)
--- NOTE | 2017-02-20 10:07 | HHI.DS ---
Discharge Summary Admission Date Feb 15, 2017 at 17:53 Discharge Date: Feb 20, 2017 Admitting Diagnosis PULMONARY EMBOLUS, DVT (1) Recurrent pulmonary embolism ICD Code: I26.99 - Other pulmonary embolism without acute cor pulmonale (2) COPD (chronic obstructive pulmonary disease) ICD Code: J44.9 - Chronic obstructive pulmonary disease, unspecified (3) Diabetes mellitus, type II ICD Code: E11.9 - Type 2 diabetes mellitus without complications (4) Noncompliance ICD Code: Z91.19 - Patient's noncompliance with other medical treatment and regimen (5) Left leg DVT ICD Code: I82.402 - Acute embolism and thrombosis of unspecified deep veins of left lower extremity Procedures None Brief History - From Admission short of breath for 1- 2 weeks went to pcp yesterday and was told he has PE - and told to take xarelto and if gets worse to come to hospital today am, left LE was purple, and had cramps thus came to er traveled here to [place] and back twice in past 6 weeks off xarelto for 2 weeks in between trips no chest pain no syncope hx of PE 2012 was last one - total 2 x total every time it is from prolonged travels was on coumadin at one point, stopped over a year ago, switched to xarelto then so that he wont need to do frequent blood tests no hx of afib no valvular problem as far as he knows- may have had echo in CBC/BMP: 02/20/17 0455 02/20/17 0455 Significant Findings Laboratory Tests Test 02/17/17 14:30 02/17/17 23:20 02/18/17 04:18 02/18/17 10:45 Red Blood Count 4.35 MIL/MM3 (4.50-5.90) 4.20 MIL/MM3 (4.50-5.90) Hemoglobin 12.9 GM/DL (13.0-17.0) 12.5 GM/DL (13.0-17.0) Hematocrit 38.8 % (39.0-51.0) 37.3 % (39.0-51.0) Platelet Count 95 TH/MM3 (150-450) 102 TH/MM3 (150-450) Neutrophils (%) (Auto) 70.1 % (16.0-70.0) Activated Partial Thromboplast Time 32.9 SEC (24.3-30.1) 64.1 SEC (24.3-30.1) 74.1 SEC (24.3-30.1) 77.4 SEC (24.3-30.1) Fibrinogen 131 mg/dL (227-377) Test 02/18/17 16:33 02/18/17 23:40 02/19/17 09:58 02/19/17 12:10 Activated Partial Thromboplast Time 51.2 SEC (24.3-30.1) 32.2 SEC (24.3-30.1) 38.7 SEC (24.3-30.1) Red Blood Count 4.12 MIL/MM3 (4.50-5.90) Hemoglobin 12.4 GM/DL (13.0-17.0) Hematocrit 36.9 % (39.0-51.0) Platelet Count 144 TH/MM3 (150-450) Random Glucose 322 MG/DL (74-106) Albumin 3.2 GM/DL (3.4-5.0) Sodium Level 132 MEQ/L (136-145) Chloride Level 97 MEQ/L (98-107) Estimat Glomerular Filtration Rate 58 ML/MIN (>89) Test 02/20/17 04:55 Red Blood Count 4.07 MIL/MM3 (4.50-5.90) Hemoglobin 12.5 GM/DL (13.0-17.0) Hematocrit 36.0 % (39.0-51.0) Prothrombin Time 13.2 SEC (9.8-11.6) Random Glucose 214 MG/DL (74-106) Albumin 3.3 GM/DL (3.4-5.0) Total Bilirubin 1.2 MG/DL (0.2-1.0) Sodium Level 132 MEQ/L (136-145) Chloride Level 97 MEQ/L (98-107) Estimat Glomerular Filtration Rate 62 ML/MIN (>89) PE at Discharge GENERAL: NAD SKIN: Warm and dry. HEAD: Normocephalic. EYES: No scleral icterus. No injection or drainage. NECK: Supple, trachea midline. No JVD or lymphadenopathy. CARDIOVASCULAR: Regular rate and rhythm without murmurs, gallops, or rubs. RESPIRATORY: Breath sounds equal bilaterally. No accessory muscle use. GASTROINTESTINAL: Abdomen soft, non-tender, nondistended. MUSCULOSKELETAL: No cyanosis, or edema. BACK: Nontender without obvious deformity. No CVA tenderness. Hospital Course Mr. Snell is a 61-year-old male. He was admitted secondary to pulmonary embolus. He has a history of recurrent pulmonary emboli. Previously he had been on Coumadin. He is treated with a heparin drip inpatient. Since have resolved. He is feeling at baseline. He has elected to transition to Xarelto as a treatment. Dosings were started yesterday and heparin has been discontinued overnight. Medically stable for discharge to home today. Pt Condition on Discharge: Stable Discharge Disposition: Discharge Home Discharge Time: <= 30 minutes Discharge Instructions DIET: Follow Instructions for: As Tolerated, No Restrictions Activities you can perform: Regular-No Restrictions Follow up Referrals: PCP Follow-up - 2 Weeks New Medications: Rivaroxaban (Xarelto) 20 Mg Tab 20 MG PO DAILY for Blood Clot Prevention, #30 TAB 0 Refills Use this AFTER 3 weeks starting dose completed Rivaroxaban (Xarelto) 15 Mg Tab 15 MG PO BID for Blood Clot Prevention, #42 TAB Use this for the first 3 weeks Continued Medications: Atenolol (Tenormin) 50 Mg Tab 50 MG PO BID for Blood Pressure Management, #60 TAB 0 Refills Chlorthalidone (Chlorthalidone) 25 Mg Tab 25 MG PO DAILY, TAB 0 Refills Gabapentin (Gabapentin) 100 Mg Cap 100 MG PO TID, #90 CAP 0 Refills Insulin Glargine Inj (Toujeo Solostar Pen Inj) 300 Unit/Ml Pen 20 UNITS SQ DAILY for Blood Sugar Management, PEN 0 Refills Lisinopril (Lisinopril) 20 Mg Tab 20 MG PO DAILY, #30 TAB 0 Refills Metformin (Metformin) 500 Mg Tab 500 MG PO BID for Blood Sugar Management, #60 TAB 0 Refills Discontinued Medications: Warfarin (Warfarin) 5 Mg Tab 5 MG PO DAILY for Blood Clot Prevention, #30 TAB 0 Refills Scott Valencia MD Feb 20, 2017 10:07
== END 2017-02-20 10:42 | disposition home or self-care (01) | DRG 299 ==
LOC: NEPE 13:12 → NEDA 17:53 → HIMW 20:10 → N04B 02-18 18:19
PROVIDERS: ADMIT Hospitalist; ATTEND Hospitalist
PROC: 02HV33Z Insertion of Infusion Device into Superior Vena Cava, Percutaneous Approach (ICD-10-PCS; principal; 2017-02-16)
PROC: B543ZZA Ultrasonography of Right Jugular Veins, Guidance (ICD-10-PCS; 2017-02-16)
PROC: B518ZZA Fluoroscopy of Superior Vena Cava, Guidance (ICD-10-PCS; 2017-02-16)
DX: I82.432 Acute embolism and thrombosis of left popliteal vein (principal); I26.92 Saddle embolus of pulmonary artery without acute cor pulmonale; E87.1 Hypo-osmolality and hyponatremia; N18.9 Chronic kidney disease, unspecified; I12.9 Hypertensive chronic kidney disease with stage 1 through stage 4 chronic kidney disease, or unspecified chronic kidney disease; E11.22 Type 2 diabetes mellitus with diabetic chronic kidney disease; I25.2 Old myocardial infarction; E66.3 Overweight; I49.3 Ventricular premature depolarization; I25.10 Atherosclerotic heart disease of native coronary artery without angina pectoris; E11.40 Type 2 diabetes mellitus with diabetic neuropathy, unspecified; J44.9 Chronic obstructive pulmonary disease, unspecified; I82.412 Acute embolism and thrombosis of left femoral vein; I82.812 Embolism and thrombosis of superficial veins of left lower extremity; Z68.36 Body mass index [BMI] 36.0-36.9, adult; Z79.01 Long term (current) use of anticoagulants; Z86.711 Personal history of pulmonary embolism; Z77.22 Contact with and (suspected) exposure to environmental tobacco smoke (acute) (chronic); Z79.4 Long term (current) use of insulin; Z91.14 Patient's other noncompliance with medication regimen
CPT/HCPCS: 36556; 37212; 71275; 76937; 77001; 80053; 80061; 82948; 83036; 83880; 85025; 85027; 85384; 85610; 85730; 87641; 93005; 93308; 93971; 96361; 96374; C1751; J1644; J1815; J2997; J7030; J7040; Q9967